=== PATIENT | male | born 1965 | race Caucasian/White ===

== ENCOUNTER 2017-10-30 13:38 | Emergency (ER) | payer MEDICARE, OTHER ==
[~2017-10-30 13:38] MED LIST: AMOX875T PO; CALC1CAP PO; NEPHRO PO; SODI650T PO; [UNRECOGNIZED DRUG - CODE] PO
[2017-10-30 13:39] VITALS: BP 141/73; PULSE 85; RESP 18; TEMP 98; O2SAT 98
--- NOTE | 2017-10-30 14:24 | RADRPT ---
EXAM DATE/TIME: 10/30/2017 14:02 [place] COMPARISON: No previous studies available for comparison. INDICATIONS : Patient hit foot on wall. Pain on top radiating to the medial side and plantar side of foot. MEDICAL HISTORY : Bradycardia. SURGICAL HISTORY : Cholecystectomy. Hernia repair, J Luis left femur, Vas Cath ENCOUNTER: Initial ACUITY: 1 day PAIN SCORE: 8/10 LOCATION: Right Foot FINDINGS: Soft tissue swelling within the underlying small bony exostosis is seen along the dorsum of the midfo ot overlying the first cuneiform tarsal bone. There is no subacute fracture. Bony structures are otherwise intact. CONCLUSION: Focal small bony exostosis with soft tissue swelling along the dorsum of the midfoot likely originati ng from the first cuneiform. No evidence of acute fracture. Georges Montana MD on October 30, 2017 at 14:19 Board Certified Radiologist. This report was verified electronically.
--- NOTE | 2017-10-30 14:57 | PD ---
HPI Chief Complaint: Injury Time Seen by Provider: 14:38 Travel History International Travel<30 days: No Contact w/Intl Traveler<30days: No Traveled to known affect area: No History of Present Illness HPI Patient comes in complaining of pain of the dorsal aspect of his right foot that began the middle the night when he accidentally kicked the wall in his sleep. Patient reports he has a history of restless leg syndrome and is on medication for this but does not take it all the time. Patient's pain is improved since initial onset however he was concerned about possible fracture. Patient describes a throbbing pain on the dorsal aspect of his right foot and radiates inferiorly. Pain is worse with walking. Resting improves the pain. Denies any numbness or tingling. PFSH Past Medical History Arthritis: No Asthma: No Autoimmune Disease: No Anxiety: No Depression: No Heart Rhythm Problems: Yes (BRADYCARDIA) Cancer: No Cardiac Catheterization: No Cardiovascular Problems: No High Cholesterol: No Chemotherapy: No Chest Pain: Yes (CHEST PAIN R/O [place]: STRESSTEST 10/19/13) Congestive Heart Failure: No COPD: No Diabetes: No Diminished Hearing: No Endocrine: No GERD: No Genitourinary: No Hepatitis: No Hiatal Hernia: No Immune Disorder: No Inguinal Hernia: Yes Implanted Vascular Access Dvce: Yes Kidney Stones: No Musculoskeletal: No Neurologic: No Psychiatric: No Reproductive: No Respiratory: No Immunizations Current: Yes Pneumonia: Yes (CHILDHOOD) Radiation Therapy: No Renal Failure: Yes (STAGE 4 KIDNEY FAILURE: 2010) Sickle Cell Disease: No Sleep Apnea: No Thyroid Disease: No Ulcer: No Tetanus Vaccination: < 5 Years Past Surgical History Abdominal Surgery: Yes (BILAT ING. HERNIA,) AICD: No Appendectomy: Yes Body Medical Devices: HEAVEN LEFT FEMUR, Cardiac Surgery: No Cholecystectomy: Yes (08/11/15) Coronary Artery Bypass Graft: No Ear Surgery: No Endocrine Surgery: No Eye Surgery: No Genitourinary Surgery: Yes (Remove galibladder) Joint Replacement: No Neurologic Surgery: No Oral Surgery: No Pacemaker: No Thoracic Surgery: No Other Surgery: Yes (BILATERAL INGUINAL HERNIA X 2 1998) Social History Alcohol Use: No Tobacco Use: Yes (FEW CIG DAILY) Substance Use: Yes (Marijuana) Allergies-Medications (Allergen,Severity, Reaction): Coded Allergies: sulfamethoxazole (Unverified Allergy, Unknown, 10/30/17) trimethoprim (Unverified Allergy, Unknown, 10/30/17) Reported Meds & Prescriptions Reported Meds & Active Scripts Active Reported Calcium Acetate (Phosphate Binder) 667 Mg Cap 667 Mg PO TID Amoxicillin 875 Mg Tab 875 Mg PO Q12HR D3 (Cholecalciferol) 1,000 Unit Cap 2 Cap PO DAILY Sodium Bicarbonate 650 Mg Tab 1,300 Mg PO TID Nephro-Corin Rx (Vitamin B Cmplx/Vit C/Folic AC) 1 Tab 1 Tab PO DAILY Review of Systems Except as stated in HPI: all other systems reviewed are Neg Physical Exam Narrative GENERAL: Well-developed, well nourished, in no acute distress, and non-ill appearing. SKIN: Focused skin assessment warm and dry. HEAD: Atraumatic. Normocephalic. EYES: Pupils equal and round. EOMI. No scleral icterus. No injection or drainage. ENT: No nasal bleeding or discharge. Mucous membranes pink and moist. NECK: Trachea midline. Supple. No nuclear rigidity. CARDIOVASCULAR: Dorsal pulses intact and equal bilaterally. Capillary refill less than 2 seconds. RESPIRATORY: No accessory muscle use. No respiratory distress. MUSCULOSKELETAL: No obvious deformities. No clubbing. No cyanosis. No edema. Full range of motion. Ankle: Neagative anterior draw and Ravi test. Negative Aleida's sign. No laxity noted with passive inversion and eversion of BL ankles. Negative squeeze test. Pulses equal BL distal to injury. Capillary refill less than 2 seconds distal to injury and equal BL. Sensation equal BL 1st web space. FROM of toes distal to injury and equal BL. NV intact distal to injury and equal BL. Dorsal pulses equal BL. Patient reports tenderness to palpation or contusion noted on the dorsal aspect of right foot. There is no crepitus. NEUROLOGICAL: Awake and alert. No obvious cranial nerve deficits. Motor grossly within normal limits. Normal speech. PSYCHIATRIC: Appropriate mood and affect; insight and judgment normal. Data Data Last Documented VS Vital Signs Date Time Temp Pulse Resp B/P (MAP) Pulse Ox O2 Delivery O2 Flow Rate FiO2 10/30/17 15:04 10/30/17 13:39 98.0 85 18 98 Room Air Orders Orders Foot, Complete ([id number]) (10/30/17 ) Ed Discharge Order (10/30/17 14:57) [facility] Medical Decision Making Medical Screen Exam Complete: Yes Emergency Medical Condition: Yes Interpretation(s) Last Impressions Foot X-Ray 10/30/17 0000 Signed Impressions: Service Date/Time: Monday, October 30, 2017 14:02 - CONCLUSION: Focal small bony exostosis with soft tissue swelling along the dorsum of the midfoot likely originating from the first cuneiform. No evidence of acute fracture. Georges Montana MD Differential Diagnosis Fracture, strain, contusion Narrative Course The patient appears to have suffered a contusion of the extremity. There is no clinical evidence to suspect bony injury by exam. Radiographic examination revealed no fracture seen at this time. The patient has full range of motion on active and passive motions. There is no significant edema. There is no proximal or distal joint effusion. The distal extremity appears neurovascularly intact, without evidence of neurovascular injury nor compartment syndrome. Tendon exam also was intact. The patient was discharged and given warnings for vascular compromise. The patient is to follow up with their regular physician or furnace mechanic helper. The patient agrees with plan. Patient in no obvious distress upon re-evaluation. All pertinent Radiology result(s) discussed with patient. Any questions/concerns in reference to patient diagnosis/condition discussed and clarified prior to patient's discharge. Reinforced sheer importance of close follow up with patient's primary physician or primary care clinic. Instructed patient to return to ED immediately, if symptoms return/worsen. Patient showed understanding of above instructions. Further instructions and recommendations were detailed in discharge paperwork. Patient ambulated without difficulty out of ED at discharge. Diagnosis Primary Impression: Contusion of right foot, initial encounter Patient Instructions: Contusion in Adults (ED), General Instructions Additional Instructions: Follow-up with your primary care physician and/or furnace mechanic helper in 3-5 days for reevaluation. Apply ice to affected area 20 minutes per hour as needed for pain. Return to the emergency department if symptoms get worse. Disposition: 01 DISCHARGE HOME Condition: Stable Toni Perry Oct 30, 2017 14:57
== END 2017-10-30 15:05 | disposition home or self-care (01) ==
LOC: NEPK 13:38
DX: S90.31XA Contusion of right foot, initial encounter (principal); F17.210 Nicotine dependence, cigarettes, uncomplicated; G25.81 Restless legs syndrome; W22.8XXA Striking against or struck by other objects, initial encounter; Y93.84 Activity, sleeping
CPT/HCPCS: 73630; 99283

== ENCOUNTER 2017-11-04 14:24 | Emergency (ER) | payer MEDICARE, OTHER ==
[~2017-11-04] VITALS: Ht 180.3 cm; Wt 60.0 kg
[2017-11-04 14:26] VITALS: BP 116/67; PULSE 72; RESP 16; TEMP 98.8; O2SAT 98
[2017-11-04] MEDS ORDERED: IBUP1TAB7 PO (14:48)
[2017-11-04] MEDS ORDERED: PENI500T PO (14:48)
[2017-11-04] MEDS ORDERED: VIST25CA PO (14:48)
--- NOTE | 2017-11-04 14:52 | PD ---
HPI Chief Complaint: Oral / Dental Pain or Problem Time Seen by Provider: 14:40 Travel History International Travel<30 days: No Contact w/Intl Traveler<30days: No Traveled to known affect area: No History of Present Illness HPI 52-year-old male presents the emergency department with several day history of worsening right upper jaw pain and swelling. Patient has one tooth, which is painful with swelling locally. He states he maybe have some drainage in this area as well. He denies fever, chills, or difficulty swallowing. He states the pain radiates to the right ear. He is currently 8 out of 10. Patient also is complaining of chronic restless legs, and is requesting something for that as well as possible. He is allergic to sulfa. PFSH Past Medical History Arthritis: No Asthma: No Autoimmune Disease: No Anxiety: No Depression: No Heart Rhythm Problems: Yes (BRADYCARDIA) Cancer: No Cardiac Catheterization: No Cardiovascular Problems: No High Cholesterol: No Chemotherapy: No Chest Pain: Yes (CHEST PAIN R/O [place]: STRESSTEST 10/19/13) Congestive Heart Failure: No COPD: No Diabetes: No Diminished Hearing: No Endocrine: No GERD: No Genitourinary: No Hepatitis: No Hiatal Hernia: No Immune Disorder: No Inguinal Hernia: Yes Implanted Vascular Access Dvce: Yes Kidney Stones: No Musculoskeletal: No Neurologic: No Psychiatric: No Reproductive: No Respiratory: No Immunizations Current: Yes Pneumonia: Yes (CHILDHOOD) Radiation Therapy: No Renal Failure: Yes (STAGE 4 KIDNEY FAILURE: 2010) Sickle Cell Disease: No Sleep Apnea: No Thyroid Disease: No Ulcer: No Past Surgical History Abdominal Surgery: Yes (BILAT ING. HERNIA,) AICD: No Appendectomy: Yes Body Medical Devices: HEAVEN LEFT FEMUR, Cardiac Surgery: No Cholecystectomy: Yes (08/11/15) Coronary Artery Bypass Graft: No Ear Surgery: No Endocrine Surgery: No Eye Surgery: No Genitourinary Surgery: Yes (Remove galibladder) Joint Replacement: No Neurologic Surgery: No Oral Surgery: No Pacemaker: No Thoracic Surgery: No Other Surgery: Yes (BILATERAL INGUINAL HERNIA X 2 1998) Social History Alcohol Use: No Tobacco Use: Yes (FEW CIG DAILY) Substance Use: Yes (Marijuana) Allergies-Medications (Allergen,Severity, Reaction): Coded Allergies: sulfamethoxazole (Unverified Allergy, Unknown, 11/04/17) trimethoprim (Unverified Allergy, Unknown, 11/04/17) Reported Meds & Prescriptions Reported Meds & Active Scripts Active Reported Calcium Acetate (Phosphate Binder) 667 Mg Cap 667 Mg PO TID Amoxicillin 875 Mg Tab 875 Mg PO Q12HR D3 (Cholecalciferol) 1,000 Unit Cap 2 Cap PO DAILY Sodium Bicarbonate 650 Mg Tab 1,300 Mg PO TID Nephro-Corin Rx (Vitamin B Cmplx/Vit C/Folic AC) 1 Tab 1 Tab PO DAILY Review of Systems Except as stated in HPI: all other systems reviewed are Neg General / Constitutional: No: Fever Eyes: No: Visual changes HENT: Positive: Dental Difficulties, Earache, No: Headaches, Vertigo, Lightheadedness, Sore Throat, Rhinitis, Rhinorrhea, Congestion, Nosebleed, Neck Stiffness, Neck Pain, Masses, Gingival Bleeding, Ear Discharge Cardiovascular: No: Chest Pain or Discomfort Respiratory: No: Shortness of Breath Gastrointestinal: No: Abdominal Pain Genitourinary: No: Dysuria Musculoskeletal: No: Pain Skin: No Rash Neurologic: No: Weakness Psychiatric: No: Depression Endocrine: No: Polydipsia Hematologic/Lymphatic: No: Easy Bruising Physical Exam Narrative GENERAL: Patient appears in [id number] distress. SKIN: Warm and dry. Normal color. Normal turgor. No rash HEAD: Atraumatic. Normocephalic. Patient has tenderness with palpation along the right upper jaw line without obvious swelling noted. EYES: Pupils equal and round. No scleral icterus. No injection or drainage. ENT: No nasal bleeding or discharge. Mucous membranes pink and moist. Teeth are in poor repair with most teeth being missing. Patient has tenderness with movement of the right upper canine. No obvious abscess is noted. Pharynx is clear. Airway is patent. TMs are clear bilaterally. NECK: Trachea midline. Supple and nontender. CARDIOVASCULAR: Regular rate and rhythm. RESPIRATORY: No accessory muscle use. Clear to auscultation. Breath sounds equal bilaterally. MUSCULOSKELETAL: Extremities without clubbing, cyanosis, or edema. No obvious deformities. NEUROLOGICAL: Awake and alert. No obvious cranial nerve deficits. Motor grossly within normal limits. Five out of 5 muscle strength in the arms and legs. Normal speech. PSYCHIATRIC: Appropriate mood and affect; insight and judgment normal. Data Data Last Documented VS Vital Signs Date Time Temp Pulse Resp B/P (MAP) Pulse Ox O2 Delivery O2 Flow Rate FiO2 11/04/17 14:26 98.8 72 16 116/67 (83 98 MDM Medical Decision Making Medical Screen Exam Complete: Yes Emergency Medical Condition: Yes Differential Diagnosis Dental caries. Dental abscess. Restless leg. Narrative Course Patient is treated with Pen-Vee K 5 mg 4 times a day #40. Patient given ibuprofen 800 mg 3 times daily with food #60. Patient is given Vistaril 25 mg up to 3 times a day when necessary restless legs and anxiety. #30. Patient states he dental care as soon as possible. Patient follow up if worsening symptoms develop. Diagnosis Primary Impression: Pain, dental Additional Impression: Restless legs Referrals: [facility] Dentist Patient Instructions: Dental Caries (DC), General Instructions Additional Instructions: Patient is treated with Pen-Vee K 5 mg 4 times a day #40. Patient given ibuprofen 800 mg 3 times daily with food #60. Patient is given Vistaril 25 mg up to 3 times a day when necessary restless legs and anxiety. #30. Patient states he dental care as soon as possible. Patient follow up if worsening symptoms develop. Med/Other Pt SpecificInfo: Prescription(s) given Scripts Hydroxyzine Pamoate (Vistaril) 25 Mg Cap 25 MG PO TID Y for MILD ANXIETY OR AGITATION, #30 CAP 0 Refills Prov: Augusto Billingsley MD 11/04/17 Ibuprofen (Ibuprofen) 800 Mg Tab 800 MG PO Q8H Y for Pain/Inflammation, #60 TAB 0 Refills Prov: Augusto Billingsley MD 11/04/17 Penicillin V Potassium (Penicillin V Potassium) 500 Mg Tab 500 MG PO Q6H for Infection for 10 Days, #40 TAB 0 Refills Prov: Augusto Billingsley MD 11/04/17 Disposition: 01 DISCHARGE HOME Condition: Stable Micheal Serrano Nov 04, 2017 14:52
== END 2017-11-04 15:04 | disposition home or self-care (01) ==
LOC: NEPK 14:24
DX: K08.89 Other specified disorders of teeth and supporting structures (principal); G25.81 Restless legs syndrome; R68.84 Jaw pain; R00.1 Bradycardia, unspecified; R07.9 Chest pain, unspecified; F17.210 Nicotine dependence, cigarettes, uncomplicated; F12.90 Cannabis use, unspecified, uncomplicated; Z88.3 Allergy status to other anti-infective agents; Z88.2 Allergy status to sulfonamides
CPT/HCPCS: 99284

== ENCOUNTER 2018-04-07 16:06 | Emergency (ER) | payer MEDICARE, OTHER ==
[~2018-04-07] VITALS: Ht 180.3 cm; Wt 60.0 kg
[~2018-04-07 16:06] MED LIST changes: +IBUP1TAB7 PO; +PENI500T PO; +VIST25CA PO
[2018-04-07 16:55] VITALS: BP 137/97; PULSE 95; RESP 20; TEMP 97.7; O2SAT 97
[2018-04-08] MEDS ORDERED: PREG25 PO ×2 (09:51)
== END 2018-04-07 18:20 | disposition left against medical advice (07) ==
LOC: NED 16:06
DX: Z03.89 Encounter for observation for other suspected diseases and conditions ruled out (principal)
CPT/HCPCS: 99281

== ENCOUNTER 2018-04-08 09:35 | Inpatient (IN) | payer MEDICARE, OTHER ==
[2018-04-08] VITALS (10 sets, daily range): BP systolic 120–154; BP diastolic 67–87; PULSE 63–99; RESP 15–20; TEMP 97.2–98.1; O2SAT 97–100
[~2018-04-08] VITALS: Ht 180.3 cm; Wt 54.3 kg
[2018-04-08] MEDS ORDERED: PREG25 PO ×2 (09:51)
[2018-04-08] MEDS ORDERED: SODIUM CHLORIDE 0.9% FLUSH 10 ML FLUSH IV FLUSH PRN ×3 (10:00→11:30)
[2018-04-08 10:22] LABS: AUTOMATED NEUTROPHIL # 5.4 TH/MM3 (1.8-7.7); BASOPHIL # 0.1 TH/MM3 (0-0.2); BASOPHIL % 0.9 % (0.0-2.0); EOSINOPHIL # 0.3 TH/MM3 (0-0.4); EOSINOPHIL % 3.3 % (0.0-4.0); HEMATOCRIT 34.1 % (39.0-51.0); HEMOGLOBIN 11.3 GM/DL (13.0-17.0); LYMPH % 19.8 % (9.0-44.0); LYMPHOCYTE # 1.5 TH/MM3 (1.0-4.8); MEAN CELL VOLUME 96.6 FL (80.0-100.0); MEAN CORPUSCULAR HEMOGLOBIN 32.1 PG (27.0-34.0); MEAN CORPUSCULAR HGB CONC 33.2 % (32.0-36.0); MEAN PLATELET VOLUME 7.9 FL (7.0-11.0); MONO % 6.1 % (0.0-8.0); MONOCYTE # 0.5 TH/MM3 (0-0.9); NEUT % 69.9 % (16.0-70.0); PLATELET COUNT 234 TH/MM3 (150-450); RED BLOOD COUNT 3.53 MIL/MM3 (4.50-5.90); RED CELL DISTRIBUTION WIDTH 15.1 % (11.6-17.2); WHITE BLOOD COUNT 7.7 TH/MM3 (4.0-11.0)
[2018-04-08 10:31] LABS: BICARBONATE 12.3 MEQ/L (21.0-32.0); CALCIUM 9.2 MG/DL (8.5-10.1); CREATININE 9.63 MG/DL (0.60-1.30)
--- NOTE | 2018-04-08 10:37 | PD ---
HPI Chief Complaint: Medical Clearance Time Seen by Provider: 10:18 Travel History International Travel<30 days: No Contact w/Intl Traveler<30days: No Traveled to known affect area: No History of Present Illness HPI Patient is a 52-year-old male with history of end-stage renal disease on hemodialysis, presents the emergency room for dialysis. Patient reports that he has dialysis on Tuesdays, and Saturdays, reports that he initially saw Dr. Elise with nephrology here for his dialysis but moved to the [facility] and had his dialysis there. Reports that he didn't like where he was living and decided to move back to [place]. He last received his dialysis treatment on Saturday of last week. Reports that he has not scheduled an appointment with a range rider in this area as "I just got here." Patient here only for dialysis. Patient is not anuric and does make urine. PFSH Past Medical History Arthritis: No Asthma: No Autoimmune Disease: No Anxiety: No Depression: No Heart Rhythm Problems: Yes (BRADYCARDIA) Cancer: No Cardiac Catheterization: No Cardiovascular Problems: No High Cholesterol: No Chemotherapy: No Chest Pain: Yes Congestive Heart Failure: No COPD: No Diabetes: No Dialysis: Yes (TRS) Diminished Hearing: No Endocrine: No GERD: No Genitourinary: No Hepatitis: No Hiatal Hernia: No Immune Disorder: No Inguinal Hernia: Yes Implanted Vascular Access Dvce: Yes Kidney Stones: No Musculoskeletal: No Neurologic: No Psychiatric: No Reproductive: No Respiratory: No Immunizations Current: Yes Pneumonia: Yes Radiation Therapy: No Renal Failure: Yes Sickle Cell Disease: No Sleep Apnea: No Thyroid Disease: No Ulcer: No Tetanus Vaccination: < 5 Years Influenza Vaccination: No Past Surgical History Abdominal Surgery: Yes (BILAT ING. HERNIA,) AICD: No Appendectomy: Yes Body Medical Devices: HEAVEN LEFT FEMUR, Cardiac Surgery: No Cholecystectomy: Yes (08/11/15) Coronary Artery Bypass Graft: No Ear Surgery: No Endocrine Surgery: No Eye Surgery: No Genitourinary Surgery: Yes (Remove galibladder) Joint Replacement: No Neurologic Surgery: No Oral Surgery: No Pacemaker: No Thoracic Surgery: No Other Surgery: Yes (BILATERAL INGUINAL HERNIA X 2 1998) Social History Alcohol Use: No Tobacco Use: Yes (FEW CIG DAILY) Substance Use: Yes (Marijuana) Allergies-Medications (Allergen,Severity, Reaction): Coded Allergies: sulfamethoxazole (Unverified Allergy, Unknown, 04/08/18) trimethoprim (Unverified Allergy, Unknown, 04/08/18) Reported Meds & Prescriptions Reported Meds & Active Scripts Active Reported Lyrica (Pregabalin) 25 Mg Cap 25 Mg PO BID Calcium Acetate (Phosphate Binder) 667 Mg Cap 667 Mg PO TID Review of Systems General / Constitutional: No: Fever Eyes: No: Visual changes HENT: No: Headaches Cardiovascular: No: Chest Pain or Discomfort Respiratory: No: Shortness of Breath Gastrointestinal: No: Abdominal Pain Genitourinary: No: Dysuria Musculoskeletal: No: Pain Skin: No Rash Neurologic: No: Weakness Psychiatric: No: Depression Endocrine: No: Polydipsia Hematologic/Lymphatic: No: Easy Bruising Physical Exam Narrative GENERAL: NAD SKIN: Focused skin assessment warm/dry. HEAD: Atraumatic. Normocephalic. EYES: Pupils equal and round. No scleral icterus. No injection or drainage. ENT: No nasal bleeding or discharge. Mucous membranes pink and moist. NECK: Trachea midline. No JVD. CARDIOVASCULAR: Regular rate and rhythm. No murmur appreciated. RESPIRATORY: No accessory muscle use. Clear to auscultation. Breath sounds equal bilaterally. GASTROINTESTINAL: Abdomen soft, non-tender, nondistended. Hepatic and splenic margins not palpable. MUSCULOSKELETAL: No obvious deformities. No clubbing. No cyanosis. No edema. Patient with left sided AV fistula with good thrill NEUROLOGICAL: Awake and alert. No obvious cranial nerve deficits. Motor grossly within normal limits. Normal speech. PSYCHIATRIC: Appropriate mood and affect; insight and judgment normal. Data Data Last Documented VS Vital Signs Date Time Temp Pulse Resp B/P (MAP) Pulse Ox O2 Delivery O2 Flow Rate FiO2 04/08/18 11:22 97 Room Air 04/08/18 09:54 86 15 04/08/18 09:37 97.2 Orders Orders Basic Metabolic Panel (Bmp) (04/08/18 09:50) Complete Blood Count With Diff (04/08/18 09:50) Iv Access Insert/Monitor (04/08/18 09:50) Sodium Chloride 0.9% Flush (Ns Flush) (04/08/18 10:00) Electrocardiogram (04/08/18 10:37) Potassium, Serum (K) (04/08/18 13:37) Ecg Monitoring (04/08/18 10:37) Oximetry (04/08/18 10:37) Calcium Gluconate Inj (Calcium Gluconate (04/08/18 10:45) Insulin Human Regular Inj (Novolin R Inj (04/08/18 10:45) Dextrose 50% In Michael (Vial) Inj (D50w (Vi (04/08/18 10:45) Sodium Bicarbonate 8.4% Inj (Sodium Bica (04/08/18 10:45) Sodium Polysty Sulfate Liq (Kayexalate L (04/08/18 10:45) Consult Nephrology (04/08/18 ) (Hub Use Only)Inp Phy Cons/Ref (04/08/18 ) Blood Flow Rate (04/08/18 11:03) Dialysate Flow Rate (04/08/18 11:03) Dialyzer (04/08/18 11:03) Concentrate (04/08/18 11:03) Acid Concentrate (04/08/18 11:03) Length Of Dialysis (04/08/18 11:03) Frequency Of Dialysis (04/08/18 11:03) Dialysis Obtain (04/08/18 11:03) Hepatitis Profile (04/08/18 11:03) Needle Size (04/08/18 11:03) Dialysis Schedule (04/08/18 11:03) Resp Oxygen Nagi C Titrat 1-4 L (04/08/18 ) Dialysis Weight (04/08/18 11:03) ^ Obtain As Needed (04/08/18 11:03) Sodium Chlor 0.9% 1000 Ml Inj (Ns 1000 M (04/08/18 11:03) Heparin Inj (Heparin Inj) (04/08/18 11:15) Sodium Chlor 0.9% 1000 Ml Inj (Ns 1000 M (04/08/18 11:03) Sodium Chlor 0.9% 1000 Ml Inj (Ns 1000 M (04/08/18 11:03) Mannitol Inj (Mannitol Inj) (04/08/18 11:15) Albumin 25% Inj (Albumin 25% Inj) (04/08/18 11:15) Sodium Chloride 0.9% Flush (Ns Flush) (04/08/18 11:15) Heparin Inj (Heparin Inj) (04/08/18 11:15) Gentamicin Inj (Gentamicin Inj) (04/08/18 11:15) Ondansetron Inj (Zofran Inj) (04/08/18 11:15) Acetaminophen (Tylenol) (04/08/18 11:15) Diphenhydramine (Benadryl) (04/08/18 11:15) Nitroglycerin Sl (Nitrostat Sl) (04/08/18 11:15) Clonidine (Catapres) (04/08/18 11:15) Epoetin Zack Inj (Epogen Inj) (04/08/18 11:15) Gelatin 12 Mm/7 Mm Top (Gelfoam 12 Mm/7 (04/08/18 11:15) Admit Order (Ed Use Only) (04/08/18 11:22) Labs Laboratory Tests Test 04/08/18 09:35 White Blood Count 7.7 TH/MM3 Red Blood Count 3.53 MIL/MM3 Hemoglobin 11.3 GM/DL Hematocrit 34.1 % Mean Corpuscular Volume 96.6 FL Mean Corpuscular Hemoglobin 32.1 PG Mean Corpuscular Hemoglobin Concent 33.2 % Red Cell Distribution Width 15.1 % Platelet Count 234 TH/MM3 Mean Platelet Volume 7.9 FL Neutrophils (%) (Auto) 69.9 % Lymphocytes (%) (Auto) 19.8 % Monocytes (%) (Auto) 6.1 % Eosinophils (%) (Auto) 3.3 % Basophils (%) (Auto) 0.9 % Neutrophils # (Auto) 5.4 TH/MM3 Lymphocytes # (Auto) 1.5 TH/MM3 Monocytes # (Auto) 0.5 TH/MM3 Eosinophils # (Auto) 0.3 TH/MM3 Basophils # (Auto) 0.1 TH/MM3 CBC Comment DIFF FINAL Differential Comment Blood Urea Nitrogen 105 MG/DL Creatinine 9.63 MG/DL Random Glucose 152 MG/DL Calcium Level 9.2 MG/DL Sodium Level 141 MEQ/L Potassium Level 6.1 MEQ/L Chloride Level 114 MEQ/L Carbon Dioxide Level 12.3 MEQ/L Anion Gap 15 MEQ/L Estimat Glomerular Filtration Rate 6 ML/MIN MDM Medical Decision Making Medical Screen Exam Complete: Yes Emergency Medical Condition: Yes Medical Record Reviewed: Yes Interpretation(s) EKG at 11:00, NSR at 69bpm, qt/qtc: 360/379, patient with hyperacute t waves Vital Signs Date Time Temp Pulse Resp B/P (MAP) Pulse Ox O2 Delivery O2 Flow Rate FiO2 04/08/18 09:54 86 15 144/79 (100) 97 Room Air 04/08/18 09:37 97.2 90 16 142/78 (99) 99 Differential Diagnosis CKD, ESRD on HD, electrolyte abnormality Narrative Course During the course of the patients emergency department visit, the patients history, examination, and differential diagnosis were reviewed with the patient. The patient was placed on a playground monitor with oximetry and frequent blood pressure monitoring. The patient had an IV access obtained and blood work sent for analysis. The patients laboratory studies were reviewed and remarkable for CBC & BMP Diagram 04/08/18 09:35 Calcium Level 9.2 Call made to range rider (Dr. Elise) for dialysis Call made to [facility] for admission Patient will be treated with calcium gluconate, insulin with dextrose, sodium bicarbonate, Kayexalate. Call made to Dr. Elise - "not his patient anymore" - request call to lactation nurse range rider Call made to Dr. Thomas who will see patient in consult. Understands that he will most likely need dialysis today Case reviewed with Dr. Diehl who accepts pt to service Critical Care Narrative Aggregate critical care time was 30 minutes. Time to perform other separately billable procedures was not included in the critical care time. My time did not include minutes spent treating any other patients simultaneously or on activities that did not directly contribute to the patient's treatment. The services I provided to this patient were to treat and/or prevent clinically significant deterioration that could result in: , decompensation, deterioration I provided critical care services requiring my management, as noted below: Chart data review, documentation time, medication orders and management, vital sign assessments/reviewing monitor data, ordering and reviewing lab tests, ordering and interpreting/reviewing x-rays and diagnostic studies, care of the patient and discussion of the patient with the admitting physicians. Diagnosis Primary Impression: Hyperkalemia Additional Impression: ESRD (end stage renal disease) Admitting Information Admitting Physician Requests: Admit Jessica Robins DO Apr 08, 2018 10:37
[2018-04-08] MEDS ORDERED: CALCIUM GLUCONATE 10% 1 GM/10 ML VIAL SLOW IVP ONE (10:45)
[2018-04-08] MEDS ORDERED: SODIUM POLYSTYRENE SULFONATE SUSP 15 GM/60 ML CUP PO ONE (10:45)
[2018-04-08] MEDS ORDERED: DEXTROSE 50% IN WATER 50 ML VIAL(D50) IV PUSH ONE (10:45)
[2018-04-08] MEDS ORDERED: INSULIN HUMAN REGULAR 1,000 UNITS/10 ML VIAL IV PUSH ONE (10:45)
[2018-04-08] MEDS ORDERED: SODIUM BICARBONATE 8.4% SOLN 50 MEQ/50 ML VIAL SLOW IVP ONE (10:45)
[2018-04-08] MEDS ORDERED: SODIUM CHLOR 0.9% 1000 ML INJ 1,000 ML OTHER PRN ×2 (11:03)
[2018-04-08] MEDS ORDERED: SODIUM CHLOR 0.9% 1000 ML INJ 1,000 ML IV PRN (11:03)
--- NOTE | 2018-04-08 11:10 | PD.CONS ---
[facility] Service Nephrology Consult Requested By Dr. Robins Reason for Consult ESRD management Primary Care Physician No Primary Care Physician History of Present Illness Patient is a 52-year-old white male with history of end-stage renal disease, has congenital obstructive uropathy, over the course his kidney failed he ended up on dialysis at first he used to see Dr. Ed Elise, but he moved to [facility] in [place] and is now with [facility], patient came back to the town as he did not like to stay there and did not made any arrangements for dialysis, he came in to the emergency expecting his dialysis to be arranged the last dialysis was done about 1 week ago, Dr. Robins has called Dr. Ed Elise office and they refused to accept the patient back, he is in the emergency now feels tired and fatigued. His potassium was 6.1 BUN of 105 creatinine of 9.63. His potassium was treated in the emergency with calcium, D50, insulin, sodium bicarbonate, Kayexalate. Review of Systems Constitutional: COMPLAINS OF: Fatigue Musculoskeletal: COMPLAINS OF: Joint pain, Muscle aches Psychiatric: COMPLAINS OF: Anxiety Past Family Social History Allergies: Coded Allergies: sulfamethoxazole (Unverified Allergy, Unknown, 04/08/18) trimethoprim (Unverified Allergy, Unknown, 04/08/18) Past Medical History CKD stage 5. Congenital urological abnormality with suspected obstructive uropathy Hyperkalemia Metabolic Acidosis Hyperphosphatemia 2ndary hyperparathyroidism Tobacco abuse Past Surgical History Left upper extremity AV fistula Urological surgery as a child Pyloric stenosis repair Hernia repair Reported Medications Reported Meds & Active Scripts Active Reported Lyrica (Pregabalin) 25 Mg Cap 25 Mg PO BID Calcium Acetate (Phosphate Binder) 667 Mg Cap 667 Mg PO TID Active Ordered Medications Current Medications Medications (Trade) Dose Ordered Sig/Smith Route Start Time Stop Time Status Last Admin (NS Flush) 2 ml UNSCH PRN IV FLUSH 04/08/18 10:00 Sodium Chloride 1,000 ml @ 0 mls/hr Q0M PRN OTHER 04/08/18 11:03 UNV (Heparin Inj) 8,000 units UNSCH PRN IV FLUSH 04/08/18 11:15 UNV Sodium Chloride 1,000 ml @ 200 mls/hr Q5H PRN IV 04/08/18 11:03 UNV Sodium Chloride 1,000 ml @ 0 mls/hr Q0M PRN OTHER 04/08/18 11:03 UNV (Mannitol Inj) 12.5 gm UNSCH PRN IV 04/08/18 11:15 UNV Albumin Human 100 ml @ 60 mls/hr UNSCH PRN IV 04/08/18 11:15 UNV (NS Flush) 5 ml UNSCH PRN IV FLUSH 04/08/18 11:15 UNV (Heparin Inj) UNSCH PRN .XX 04/08/18 11:15 UNV (Gentamicin Inj) 20 mg UNSCH PRN OTHER 04/08/18 11:15 UNV (Zofran Inj) 4 mg UNSCH PRN IV PUSH 04/08/18 11:15 UNV (Tylenol) 650 mg UNSCH PRN PO 04/08/18 11:15 UNV (Benadryl) 25 mg UNSCH PRN PO 04/08/18 11:15 UNV (Nitrostat Sl) 0.4 mg UNSCH PRN SL 04/08/18 11:15 UNV (Catapres) 0.1 mg UNSCH PRN PO 04/08/18 11:15 UNV (Epogen Inj) 2,000 units UNSCH PRN IV PUSH 04/08/18 11:15 UNV (Gelfoam 12 Mm/7 Mm Top) 1 foam UNSCH PRN TOP 04/08/18 11:15 UNV Family History Noncontributory Social History History of tobacco use Alcohol use rarely History of marijuana use positive Physical Exam Vital Signs Vital Signs Date Time Temp Pulse Resp B/P (MAP) Pulse Ox O2 Delivery O2 Flow Rate FiO2 04/08/18 09:54 86 15 144/79 (100) 97 Room Air 04/08/18 09:37 97.2 90 16 142/78 (99) 99 Physical Exam GENERAL: Well-nourished, well-developed patient. SKIN: Warm and dry. HEAD: Normocephalic. EYES: No scleral icterus. No injection or drainage. NECK: Supple, trachea midline. No JVD or lymphadenopathy. CARDIOVASCULAR: Regular rate and rhythm without murmurs, gallops, or rubs. RESPIRATORY: Breath sounds equal bilaterally. No accessory muscle use. GASTROINTESTINAL: Abdomen soft, non-tender, nondistended. EXTREMITIES: No cyanosis, or edema. AV fistula left arm NEUROLOGICAL: Awake, alert, and oriented x 3. Non-focal. Laboratory Laboratory Tests Test 04/08/18 09:35 White Blood Count 7.7 Red Blood Count 3.53 Hemoglobin 11.3 Hematocrit 34.1 Mean Corpuscular Volume 96.6 Mean Corpuscular Hemoglobin 32.1 Mean Corpuscular Hemoglobin Concent 33.2 Red Cell Distribution Width 15.1 Platelet Count 234 Mean Platelet Volume 7.9 Neutrophils (%) (Auto) 69.9 Lymphocytes (%) (Auto) 19.8 Monocytes (%) (Auto) 6.1 Eosinophils (%) (Auto) 3.3 Basophils (%) (Auto) 0.9 Neutrophils # (Auto) 5.4 Lymphocytes # (Auto) 1.5 Monocytes # (Auto) 0.5 Eosinophils # (Auto) 0.3 Basophils # (Auto) 0.1 CBC Comment DIFF FINAL Differential Comment Blood Urea Nitrogen 105 Creatinine 9.63 Random Glucose 152 Calcium Level 9.2 Sodium Level 141 Potassium Level 6.1 Chloride Level 114 Carbon Dioxide Level 12.3 Anion Gap 15 Estimat Glomerular Filtration Rate 6 Result Diagram: 04/08/18 0935 04/08/18 0935 Assessment and Plan Problem List: (1) ESRD (end stage renal disease) ICD Codes: N18.6 - End stage renal disease Status: Acute Plan: Patient has no arrangement for dialysis he is uremic oriented to dialysis orientation and try to arrange outpatient dialysis Continue supportive care Avoid nephrotoxins (2) Hyperkalemia ICD Codes: E87.5 - Hyperkalemia Status: Acute Plan: Treated and will recheck later (3) Metabolic acidosis ICD Codes: E87.2 - Acidosis Status: Acute Plan: Due to renal failure (4) HTN (hypertension) ICD Codes: I10 - HTN (hypertension) Status: Chronic Plan: Continue to monitor Matthias Thomas MD Apr 08, 2018 11:10
[2018-04-08] MEDS ORDERED: ACETAMINOPHEN 325 MG TAB PO PRN ×3 (11:15→11:30)
[2018-04-08] MEDS ORDERED: ONDANSETRON HCL 4 MG/2 ML VIAL IV PUSH PRN (11:15)
[2018-04-08] MEDS ORDERED: cloNIDine HCL 0.1 MG TAB PO PRN (11:15)
[2018-04-08] MEDS ORDERED: diphenhydrAMINE HCL 25 MG CAP PO PRN (11:15)
[2018-04-08] MEDS ORDERED: GENTAMICIN SULFATE 20 MG/2 ML VIAL OTHER PRN (11:15)
[2018-04-08] MEDS ORDERED: ALBUMIN 25% INJ 100 ML IV PRN (11:15)
[2018-04-08] MEDS ORDERED: MANNITOL 12.5 GM/50 ML VIAL IV PRN (11:15)
[2018-04-08] MEDS ORDERED: GELATIN 12 MM/7 MM FOAM TOP PRN (11:15)
[2018-04-08] MEDS ORDERED: NITROGLYCERIN 0.4 MG SL 25 TABS/BTL SL PRN (11:15)
[2018-04-08] MEDS ORDERED: EPOETIN ALFA 10,000 UNITS/ML VIAL IV PUSH PRN (11:15)
[2018-04-08] MEDS ORDERED: HEPARIN SODIUM - IV 10,000 UNITS/10 ML VIAL PRN (11:15)
[2018-04-08] MEDS ORDERED: HEPARIN SODIUM - IV 10,000 UNITS/10 ML VIAL IV FLUSH PRN (11:15)
[2018-04-08] MEDS ORDERED: RESP: ALBUTEROL 2.5 MG/IPRATROPIUM 0.5 MG NEB (PRN) NEB (11:30)
[2018-04-08] MEDS ORDERED: MAGNESIUM HYDROXIDE SUSP 30 ML CUP PO PRN (11:30)
[2018-04-08] MEDS ORDERED: ONDANSETRON ODT 4 MG TAB PO PRN (11:30)
[2018-04-08] MEDS ORDERED: NALOXONE HCL 0.4 MG/ML AMP IV PUSH PRN (11:30)
--- NOTE | 2018-04-08 16:16 | HHI.HP ---
[facility] Service [facility] Primary Care Physician No Primary Care Physician Admission Diagnosis Hyperkalemia, esrd Diagnoses: (1) Medical non-compliance (2) ESRD on hemodialysis (3) Hyperkalemia Chief Complaint: Noncompliance, I came to the hospital because I need to resume dialysis Travel History International Travel<30 Days: No Contact w/Intl Traveler <30 Da: No Traveled to Known Affected Are: No History of Present Illness 52-year-old male for past medical history of end-stage renal disease on hemodialysis presented to the ED today because he states it has been over a week since he moved back in town that he didn't go for HD. He initially call Dr. Ed Elise, who refused to see the patient and instructed him to come to the ED. Patient denies any chest pain or shortness of breath. He only complains of leg cramping which he attributes to his restless leg syndrome. Abnormal lab in the ED include elevated potassium for which patient was treated. Nephrology was consulted Review of Systems Except as stated in HPI: all other systems reviewed are Neg Past Family Social History Past Medical History ESRD on HD Implanted Vascular Access Dvce: Yes Renal Failure: Yes Past Surgical History BILAT ING. HERNIA Appendectomy: Yes HEAVEN LEFT FEMUR, Cholecystectomy: Yes (08/11/15) Left arm AV fistula Other Surgery: Yes (BILATERAL INGUINAL HERNIA X 2 1998) Reported Medications Lyrica (Pregabalin) 25 Mg Cap 25 Mg PO BID Calcium Acetate (Phosphate Binder) 667 Mg Cap 667 Mg PO TID Allergies: Coded Allergies: sulfamethoxazole (Unverified Allergy, Unknown, 04/08/18) trimethoprim (Unverified Allergy, Unknown, 04/08/18) Family History Family history positive for chronic kidney disease, cancer unknown type Social History Alcohol Use: No Tobacco Use: Yes (FEW CIG DAILY) Substance Use: Yes (Marijuana) Physical Exam Vital Signs Vital Signs Date Time Temp Pulse Resp B/P (MAP) Pulse Ox O2 Delivery O2 Flow Rate FiO2 04/08/18 14:39 04/08/18 14:05 70 15 146/67 (93) 100 Room Air 04/08/18 12:00 78 17 154/73 (100) 98 Room Air 04/08/18 11:22 97 Room Air 04/08/18 09:54 86 15 144/79 (100) 97 Room Air 04/08/18 09:37 97.2 90 16 142/78 (99) 99 Physical Exam GENERAL: This is a well-nourished, well-developed patient, in no apparent distress. SKIN: No rashes, ecchymoses or lesions. Cool and dry. HEAD: Atraumatic. Normocephalic. No temporal or scalp tenderness. EYES: Pupils equal round and reactive. Extraocular motions intact. No scleral icterus. No injection or drainage. ENT: Nose without bleeding, purulent drainage or septal hematoma. Throat without erythema, tonsillar hypertrophy or exudate. Uvula midline. Airway patent. NECK: Trachea midline. No JVD or lymphadenopathy. Supple, nontender, no meningeal signs. CARDIOVASCULAR: Regular rate and rhythm without murmurs, gallops, or rubs. RESPIRATORY: Clear to auscultation. Breath sounds equal bilaterally. No wheezes , rales, or rhonchi. GASTROINTESTINAL: Abdomen soft, non-tender, nondistended. No hepato-splenomegaly , or palpable masses. No guarding. MUSCULOSKELETAL: Extremities without clubbing, cyanosis, or edema. No joint tenderness, effusion, or edema noted. No calf tenderness. Negative Homans sign bilaterally. NEUROLOGICAL: Awake and alert. Cranial nerves II through XII intact. Motor and sensory grossly within normal limits. Five out of 5 muscle strength in all muscle groups. Normal speech. Laboratory Laboratory Tests Test 04/08/18 09:35 White Blood Count 7.7 Red Blood Count 3.53 Hemoglobin 11.3 Hematocrit 34.1 Mean Corpuscular Volume 96.6 Mean Corpuscular Hemoglobin 32.1 Mean Corpuscular Hemoglobin Concent 33.2 Red Cell Distribution Width 15.1 Platelet Count 234 Mean Platelet Volume 7.9 Neutrophils (%) (Auto) 69.9 Lymphocytes (%) (Auto) 19.8 Monocytes (%) (Auto) 6.1 Eosinophils (%) (Auto) 3.3 Basophils (%) (Auto) 0.9 Neutrophils # (Auto) 5.4 Lymphocytes # (Auto) 1.5 Monocytes # (Auto) 0.5 Eosinophils # (Auto) 0.3 Basophils # (Auto) 0.1 CBC Comment DIFF FINAL Differential Comment Blood Urea Nitrogen 105 Creatinine 9.63 Random Glucose 152 Calcium Level 9.2 Sodium Level 141 Potassium Level 6.1 Chloride Level 114 Carbon Dioxide Level 12.3 Anion Gap 15 Estimat Glomerular Filtration Rate 6 Result Diagram: 04/08/1893404/08/1835 Septic Shock Reassessment Septic shock perfusion: reassessment completed Caprini VTE Risk Assessment Caprini VTE Risk Assessment: No/Low Risk (score <= 1) Caprini Risk Assessment Model Point Value = 1 Point Value = 2 Point Value = 3 Point Value = 5 Age 41-60 Minor surgery BMI > 25 kg/m2 Swollen legs Varicose veins or History of unexplained or recurrent spontaneous Oral contraceptives or hormone replacement Sepsis (< 1 month) Serious lung disease, including pneumonia (< 1 month) Abnormal pulmonary function Acute myocardial infarction Congestive heart failure (< 1 month) History of inflammatory bowel disease Medical patient at bed rest Age 61-74 Arthroscopic surgery Major open surgery (> 45 min) Laparoscopic surgery (> 45 min) Malignancy Confined to bed (> 72 hours) Immobilizing plaster cast Central venous access Age >= 75 History of VTE Family history of VTE Factor V Leiden Prothrombin [id number] Lupus anticoagulant Anticardiolipin antibodies Elevated serum homocysteine Heparin-induced thrombocytopenia Other congenital or acquired thrombophilia Stroke (< 1 month) Elective arthroplasty Hip, pelvis, or leg fracture Acute spinal cord injury (< 1 month) Prophylaxis Regimen Total Risk Factor Score Risk Level Prophylaxis Regimen 0-1 Low Early ambulation 2 Moderate Order ONE of the following: *Sequential Compression Device (SCD) *Heparin 5000 units SQ BID 3-4 Higher Order ONE of the following medications: *Heparin 5000 units SQ TID *Enoxaparin/Lovenox 40 mg SQ daily (WT < 150 kg, CrCl > 30 mL/min) *Enoxaparin/Lovenox 30 mg SQ daily (WT < 150 kg, CrCl > 10-29 mL/min) *Enoxaparin/Lovenox 30 mg SQ BID (WT < 150 kg, CrCl > 30 mL/min) AND/OR *Sequential Compression Device (SCD) 5 or more Highest Order ONE of the following medications: *Heparin 5000 units SQ TID (Preferred with Epidurals) *Enoxaparin/Lovenox 40 mg SQ daily (WT < 150 kg, CrCl > 30 mL/min) *Enoxaparin/Lovenox 30 mg SQ daily (WT < 150 kg, CrCl > 10-29 mL/min) *Enoxaparin/Lovenox 30 mg SQ BID (WT < 150 kg, CrCl > 30 mL/min) AND *Sequential Compression Device (SCD) Assessment and Plan Problem List: (1) Hyperglycemia ICD Code: R73.9 - Hyperglycemia, unspecified (2) Anemia in chronic kidney disease (CKD) ICD Code: N18.9 - Chronic kidney disease, unspecified; D63.1 - Anemia in chronic kidney disease (3) ESRD on hemodialysis ICD Code: N18.6 - End stage renal disease; Z99.2 - Dependence on renal dialysis (4) Medical non-compliance ICD Code: Z91.19 - Patient's noncompliance with other medical treatment and regimen (5) HTN (hypertension) ICD Code: I10 - HTN (hypertension) Status: Chronic (6) Hyperkalemia ICD Code: E87.5 - Hyperkalemia Status: Acute Assessment and Plan 52-year-old man with End-stage renal disease on hemodialysis Nephrology consulted He will need outpatient set up for hemodialysis prior to discharge Hyperkalemia Treated in the ED, monitor level Metabolic acidosis Secondary to renal failure Anemia of chronic kidney disease H&H stable and continue to monitor Hyperglycemia Check hemoglobin A1c and treat accordingly Hypertension Start Procardia 30 mg daily Tobacco abuse Tobacco counseling cessation provided Start nicotine patch Code Status Full code Discussed Condition With ED physician, patient Physician Certification 2 Midnight Certification Type: Admission for Inpatient Services Order for Inpatient Services The services are ordered in accordance with Medicare regulations or non- Medicare payer requirements, as applicable. In the case of services not specified as inpatient-only, they are appropriately provided as inpatient services in accordance with the 2-midnight benchmark. Estimated LOS (days): 2 days is the estimated time the patient will need to remain in the hospital, assuming treatment plan goals are met and no additional complications. Post-Hospital Plan: Not yet determined Santos Diehl MD Apr 08, 2018 16:16
--- NOTE | 2018-04-08 17:18 | EKG ---
Date Performed: 04/08/2018 Time Performed: 11:00:38 PTAGE: 52 years EKG: Sinus rhythm PEAKED T WAVES ABNORMAL ECG PREVIOUS TRACING : 08/08/2016 14.14 Compared to previous tracing, peaked T waves present DOCTOR: Terry Dhaliwal Interpretating Date/Time 04/08/2018 17:16:20
[2018-04-08] MEDS: PREGABALIN 25 MG CAP PO SCH (20:32)
[2018-04-08] MEDS: NICOTINE 21 MG/24 HR PATCH T-DERMAL SCH (20:32)
[2018-04-08] MEDS: CALCIUM ACETATE 667 MG CAP PO SCH (20:32)
[2018-04-08] MEDS: REMOVE OLD PATCH T-DERMAL SCH (20:34)
[2018-04-08] MEDS ORDERED: SODIUM CHLORIDE 0.9% FLUSH 10 ML FLUSH IV FLUSH SCH (21:00)
[2018-04-09] VITALS (8 sets, daily range): BP systolic 128–154; BP diastolic 67–80; PULSE 70–98; RESP 16–20; TEMP 97.6–98.8; O2SAT 96–99
[2018-04-09 06:27] LABS: AUTOMATED NEUTROPHIL # 5.5 TH/MM3 (1.8-7.7); BASOPHIL % 0.5 % (0.0-2.0); EOSINOPHIL # 0.3 TH/MM3 (0-0.4); EOSINOPHIL % 3.5 % (0.0-4.0); HEMATOCRIT 33.4 % (39.0-51.0); HEMOGLOBIN 11.3 GM/DL (13.0-17.0); LYMPH % 27.3 % (9.0-44.0); LYMPHOCYTE # 2.5 TH/MM3 (1.0-4.8); MEAN CELL VOLUME 93.5 FL (80.0-100.0); MEAN CORPUSCULAR HEMOGLOBIN 31.8 PG (27.0-34.0); MEAN PLATELET VOLUME 8.1 FL (7.0-11.0); MONO % 8.2 % (0.0-8.0); MONOCYTE # 0.7 TH/MM3 (0-0.9); NEUT % 60.5 % (16.0-70.0); PLATELET COUNT 250 TH/MM3 (150-450); RED BLOOD COUNT 3.57 MIL/MM3 (4.50-5.90); RED CELL DISTRIBUTION WIDTH 14.6 % (11.6-17.2); WHITE BLOOD COUNT 9.1 TH/MM3 (4.0-11.0)
[2018-04-09 07:06] LABS: ALBUMIN 3.5 GM/DL (3.4-5.0); ALKALINE PHOSPHATASE 56 U/L (45-117); ALT (GPT) 27 U/L (12-78); AST (GOT) 19 U/L (15-37); BICARBONATE 24.9 MEQ/L (21.0-32.0); BLOOD UREA NITROGEN 61 MG/DL (7-18); CALCIUM 8.1 MG/DL (8.5-10.1); CHLORIDE 102 MEQ/L (98-107); CREATININE 6.72 MG/DL (0.60-1.30); GLOMERULAR FILTRATION RATE 9 ML/MIN (>89); GLUCOSE,RANDOM 80 MG/DL (74-106); PHOSPHORUS 8.3 MG/DL (2.5-4.9); SODIUM (NA) 140 MEQ/L (136-145); TOTAL BILIRUBIN ADULT 0.2 MG/DL (0.2-1.0); TOTAL PROTEIN 6.6 GM/DL (6.4-8.2)
[2018-04-09] MEDS: NICOTINE 21 MG/24 HR PATCH T-DERMAL SCH (07:52)
[2018-04-09] MEDS: VITAMIN B CMPLX/VITC/FOLIC AC CAP PO SCH (07:52)
[2018-04-09] MEDS: CALCIUM ACETATE 667 MG CAP PO SCH ×3 (07:52→17:53)
[2018-04-09] MEDS: NIFEdipine 30 MG SUSTAINED RELEASE TAB PO SCH (07:52)
[2018-04-09] MEDS: PREGABALIN 25 MG CAP PO SCH ×2 (07:52→21:57)
--- NOTE | 2018-04-09 11:20 | HHI.PR ---
Subjective Remarks Follow-up end-stage renal disease on hemodialysis April 09, 2018-patient seen and examined; he denies any chest pain, shortness of breath or heart palpitation. States he is ready for discharge after outpatient HD is set up Objective Vitals Vital Signs Date Time Temp Pulse Resp B/P (MAP) Pulse Ox O2 Delivery O2 Flow Rate FiO2 04/09/18 08:00 98.2 85 20 142/76 (98) 99 04/09/18 04:00 98.8 92 19 152/77 (102) 96 04/09/18 00:00 Room Air 04/09/18 00:00 97.9 98 17 154/68 (96) 98 04/08/18 23:55 76 04/08/18 21:00 Room Air 04/08/18 20:04 66 04/08/18 20:00 98.1 99 17 120/72 (88) 99 04/08/18 16:39 97.7 63 20 145/87 (106) 100 04/08/18 16:00 84 04/08/18 14:39 04/08/18 14:05 70 15 146/67 (93) 100 Room Air 04/08/18 12:00 78 17 154/73 (100) 98 Room Air 04/08/18 11:22 97 Room Air I/O 04/08/18 04/08/18 04/08/18 04/09/18 04/09/18 04/09/18 06:59 14:59 22:59 06:59 14:59 22:59 Intake Total 480 ml Output Total 1500 ml Balance -1500 ml 480 ml Intake Oral 480 ml Hemodialysis 1500 ml # Voids 1 Result Diagram: 04/09/18 0515 04/09/18 0515 Objective Remarks GENERAL: NAD SKIN: Warm and dry. HEAD: Normocephalic. EYES: No scleral icterus. No injection or drainage. NECK: Supple, trachea midline. No JVD or lymphadenopathy. CARDIOVASCULAR: Regular rate and rhythm without murmurs, gallops, or rubs. RESPIRATORY: Breath sounds equal bilaterally. No accessory muscle use. GASTROINTESTINAL: Abdomen soft, non-tender, nondistended. MUSCULOSKELETAL: No cyanosis, or edema. LUE with AVF with good thrill BACK: Nontender without obvious deformity. No CVA tenderness. A/P Problem List: (1) Hyperglycemia ICD Code: R73.9 - Hyperglycemia, unspecified (2) Anemia in chronic kidney disease (CKD) ICD Code: N18.9 - Chronic kidney disease, unspecified; D63.1 - Anemia in chronic kidney disease (3) ESRD on hemodialysis ICD Code: N18.6 - End stage renal disease; Z99.2 - Dependence on renal dialysis (4) Medical non-compliance ICD Code: Z91.19 - Patient's noncompliance with other medical treatment and regimen (5) HTN (hypertension) ICD Code: I10 - HTN (hypertension) Status: Chronic (6) Hyperkalemia ICD Code: E87.5 - Hyperkalemia Status: Acute Assessment and Plan 52-year-old man with End-stage renal disease on hemodialysis Nephrology consultation appreciated He will need outpatient set up for hemodialysis prior to discharge Hyperkalemia Resolved post treatment in the ED April 08, 2018 Metabolic acidosis-resolved Secondary to renal failure Anemia of chronic kidney disease H&H stable and continue to monitor Hyperglycemia Hemoglobin A1c pending and treat accordingly Hypertension Continue Procardia 30 mg daily Tobacco abuse Tobacco counseling cessation provided Continue nicotine patch Santos Diehl MD Apr 09, 2018 11:20
--- NOTE | 2018-04-09 14:39 | HHI.NPPN ---
Subjective History of Present Illness 52 year old with ESRD HTN need placement for Hemodialysis Objective Data Data Vital Signs Date Time Temp Pulse Resp B/P (MAP) Pulse Ox O2 Delivery O2 Flow Rate FiO2 04/09/18 14:13 98 21 04/09/18 08:00 98.2 85 20 142/76 (98) 99 04/09/18 04:00 98.8 92 19 152/77 (102) 96 04/09/18 00:00 Room Air 04/09/18 00:00 97.9 98 17 154/68 (96) 98 04/08/18 23:55 76 04/08/18 21:00 Room Air 04/08/18 20:04 66 04/08/18 20:00 98.1 99 17 120/72 (88) 99 04/08/18 16:39 97.7 63 20 145/87 (106) 100 04/08/18 16:00 84 04/08/18 14:39 -: 04/09/18 0515 04/09/18 0515 Physical Exam General Appearance: Well Developed, Well Nourished Neck Neck Exam: Neck Supple Pulmonary Resp Exam: Clear Bilaterally, Breath Sounds Equal Cardiology CV Exam: Regular, Normal Sinus Rhythm Gastrointestinal/Abdomen GI Exam: Soft, Non-Tender, Bowel Sounds Present Extremeties Extremities Exam: No Edema Assessment/Plan Problem List: (1) ESRD (end stage renal disease) ICD Codes: N18.6 - End stage renal disease Status: Acute Plan: Patient has no arrangement for dialysis he is on HD try to arrange outpatient dialysis Continue supportive care Avoid nephrotoxins (2) Hyperkalemia ICD Codes: E87.5 - Hyperkalemia Status: Acute Plan: Treated and will recheck later (3) Metabolic acidosis ICD Codes: E87.2 - Acidosis Status: Acute Plan: Due to renal failure (4) HTN (hypertension) ICD Codes: I10 - HTN (hypertension) Status: Chronic Plan: Continue to monitor Matthias Thomas MD Apr 09, 2018 14:39
[2018-04-09 17:00] LABS: HEMOGLOBIN A1C 4.9 % (4.3-6.0)
[2018-04-09] MEDS: REMOVE OLD PATCH T-DERMAL SCH (21:00)
[2018-04-10] VITALS (7 sets, daily range): BP systolic 124–150; BP diastolic 75–89; PULSE 68–97; RESP 16–20; TEMP 97.3–98.3; O2SAT 96–99
[2018-04-10] MEDS: NICOTINE 21 MG/24 HR PATCH T-DERMAL SCH (09:00)
[2018-04-10] MEDS: CALCIUM ACETATE 667 MG CAP PO SCH ×3 (09:57→18:00)
[2018-04-10] MEDS: NIFEdipine 30 MG SUSTAINED RELEASE TAB PO SCH (09:57)
[2018-04-10] MEDS: PREGABALIN 25 MG CAP PO SCH ×2 (09:57→20:55)
[2018-04-10] MEDS: VITAMIN B CMPLX/VITC/FOLIC AC CAP PO SCH (09:58)
--- NOTE | 2018-04-10 11:48 | HHI.PR ---
Subjective Remarks Follow-up end-stage renal disease on hemodialysis April 09, 2018-patient seen and examined; he denies any chest pain, shortness of breath or heart palpitation. States he is ready for discharge after outpatient HD is set up April 10, 2018-patient seen and examined, no complaint. Awaiting for HD that needs to be set up for outpatient Objective Vitals Vital Signs Date Time Temp Pulse Resp B/P (MAP) Pulse Ox O2 Delivery O2 Flow Rate FiO2 04/10/18 08:00 Room Air 04/10/18 08:00 97.3 97 16 145/80 (101) 96 04/10/18 04:00 97.7 82 18 150/84 (106) 98 04/10/18 00:00 97.7 68 18 124/76 (92) 98 04/09/18 22:57 18 04/09/18 20:45 Room Air 04/09/18 20:00 97.6 78 16 135/69 (91) 99 04/09/18 17:26 98 21 04/09/18 16:00 98.1 75 20 128/67 (87) 98 04/09/18 14:13 98 21 04/09/18 12:00 98.4 70 20 137/80 (99) 98 I/O 04/09/18 04/09/18 04/09/18 04/10/18 04/10/18 04/10/18 07:00 15:00 23:00 07:00 15:00 23:00 Intake Total 480 ml 240 ml 720 ml Balance 480 ml 240 ml 720 ml Intake Oral 480 ml 240 ml 720 ml # Voids 4 4 # Bowel Movements 1 1 Result Diagram: 04/09/18 0515 04/09/18 0515 Objective Remarks GENERAL: NAD SKIN: Warm and dry. HEAD: Normocephalic. EYES: No scleral icterus. No injection or drainage. NECK: Supple, trachea midline. No JVD or lymphadenopathy. CARDIOVASCULAR: Regular rate and rhythm without murmurs, gallops, or rubs. RESPIRATORY: Breath sounds equal bilaterally. No accessory muscle use. GASTROINTESTINAL: Abdomen soft, non-tender, nondistended. MUSCULOSKELETAL: No cyanosis, or edema. LUE with AVF with good thrill BACK: Nontender without obvious deformity. No CVA tenderness. A/P Problem List: (1) Hyperglycemia ICD Code: R73.9 - Hyperglycemia, unspecified (2) Anemia in chronic kidney disease (CKD) ICD Code: N18.9 - Chronic kidney disease, unspecified; D63.1 - Anemia in chronic kidney disease (3) ESRD on hemodialysis ICD Code: N18.6 - End stage renal disease; Z99.2 - Dependence on renal dialysis (4) Medical non-compliance ICD Code: Z91.19 - Patient's noncompliance with other medical treatment and regimen (5) HTN (hypertension) ICD Code: I10 - HTN (hypertension) Status: Chronic (6) Hyperkalemia ICD Code: E87.5 - Hyperkalemia Status: Acute Assessment and Plan 52-year-old man with End-stage renal disease on hemodialysis Nephrology consultation appreciated He will need outpatient set up for hemodialysis prior to discharge Hyperkalemia Resolved post treatment in the ED April 08, 2018 Metabolic acidosis-resolved Secondary to renal failure Anemia of chronic kidney disease H&H stable and continue to monitor Hyperglycemia-resolved Hemoglobin A1c 4.9 Hypertension Continue Procardia 30 mg daily Tobacco abuse Tobacco counseling cessation provided Continue nicotine patch Santos Diehl MD Apr 10, 2018 11:48
--- NOTE | 2018-04-10 15:09 | HHI.NPPN ---
Subjective History of Present Illness 52 year old with ESRD HTN need placement for Hemodialysis Objective Data Data Vital Signs Date Time Temp Pulse Resp B/P (MAP) Pulse Ox O2 Delivery O2 Flow Rate FiO2 04/10/18 13:57 98 21 04/10/18 08:00 Room Air 04/10/18 08:00 97.3 97 16 145/80 (101) 96 04/10/18 04:00 97.7 82 18 150/84 (106) 98 04/10/18 00:00 97.7 68 18 124/76 (92) 98 04/09/18 22:57 18 04/09/18 20:45 Room Air 04/09/18 20:00 97.6 78 16 135/69 (91) 99 04/09/18 17:26 98 21 04/09/18 16:00 98.1 75 20 128/67 (87) 98 -: 04/09/18 0515 04/09/18 0515 Physical Exam General Appearance: Well Developed, Well Nourished Neck Neck Exam: Neck Supple Pulmonary Resp Exam: Clear Bilaterally, Breath Sounds Equal Cardiology CV Exam: Regular, Normal Sinus Rhythm Gastrointestinal/Abdomen GI Exam: Soft, Non-Tender, Bowel Sounds Present Extremeties Extremities Exam: No Edema Assessment/Plan Problem List: (1) ESRD (end stage renal disease) ICD Codes: N18.6 - End stage renal disease Status: Acute Plan: Patient has no arrangement for dialysis he is on HD try to arrange outpatient dialysis Continue supportive care Avoid nephrotoxins HJD today await placement (2) Hyperkalemia ICD Codes: E87.5 - Hyperkalemia Status: Acute Plan: Treated and will recheck later (3) Metabolic acidosis ICD Codes: E87.2 - Acidosis Status: Acute Plan: Due to renal failure (4) HTN (hypertension) ICD Codes: I10 - HTN (hypertension) Status: Chronic Plan: Continue to monitor Matthias Thomas MD Apr 10, 2018 15:09
[2018-04-10] MEDS: REMOVE OLD PATCH T-DERMAL SCH (20:55)
[2018-04-11] VITALS (8 sets, daily range): BP systolic 122–159; BP diastolic 67–86; PULSE 72–103; RESP 16–20; TEMP 97.4–98.2; O2SAT 95–100
[2018-04-11] MEDS: NIFEdipine 30 MG SUSTAINED RELEASE TAB PO SCH (07:57)
[2018-04-11] MEDS: NICOTINE 21 MG/24 HR PATCH T-DERMAL SCH (07:58)
[2018-04-11] MEDS: PREGABALIN 25 MG CAP PO SCH ×2 (07:58→20:59)
[2018-04-11] MEDS: CALCIUM ACETATE 667 MG CAP PO SCH ×3 (07:58→16:52)
[2018-04-11] MEDS: VITAMIN B CMPLX/VITC/FOLIC AC CAP PO SCH (08:00)
--- NOTE | 2018-04-11 11:02 | HHI.PR ---
Subjective Remarks Follow-up end-stage renal disease on hemodialysis April 09, 2018-patient seen and examined; he denies any chest pain, shortness of breath or heart palpitation. States he is ready for discharge after outpatient HD is set up April 10, 2018-patient seen and examined, no complaint. Awaiting for HD that needs to be set up for outpatient April 11, 2018-patient seen and examined, stable, no issues overnight Objective Vitals Vital Signs Date Time Temp Pulse Resp B/P (MAP) Pulse Ox O2 Delivery O2 Flow Rate FiO2 04/11/18 08:00 97.5 73 20 122/78 (93) 96 04/11/18 07:15 Room Air 04/11/18 04:43 98.1 103 16 141/67 (91) 95 04/10/18 23:13 98.3 87 16 132/75 (94) 99 04/10/18 21:55 20 04/10/18 20:00 Room Air 04/10/18 19:43 21 04/10/18 19:29 98.1 84 16 150/79 (102) 98 04/10/18 13:57 98 21 04/10/18 12:00 97.4 77 20 146/89 (108) 98 I/O 04/10/18 04/10/18 04/10/18 04/11/18 04/11/18 04/11/18 07:00 15:00 23:00 07:00 15:00 23:00 Intake Total 720 ml 600 ml 960 ml Output Total 2550 ml Balance 720 ml -1950 ml 960 ml Intake Oral 720 ml 600 ml 960 ml Output Urine Total 550 ml Hemodialysis 2000 ml # Voids 4 5 # Bowel Movements 1 2 1 Result Diagram: 04/09/18 0515 04/09/18 0515 Objective Remarks GENERAL: NAD SKIN: Warm and dry. HEAD: Normocephalic. EYES: No scleral icterus. No injection or drainage. NECK: Supple, trachea midline. No JVD or lymphadenopathy. CARDIOVASCULAR: Regular rate and rhythm without murmurs, gallops, or rubs. RESPIRATORY: Breath sounds equal bilaterally. No accessory muscle use. GASTROINTESTINAL: Abdomen soft, non-tender, nondistended. MUSCULOSKELETAL: No cyanosis, or edema. LUE with AVF with good thrill BACK: Nontender without obvious deformity. No CVA tenderness. A/P Problem List: (1) Hyperglycemia ICD Code: R73.9 - Hyperglycemia, unspecified (2) Anemia in chronic kidney disease (CKD) ICD Code: N18.9 - Chronic kidney disease, unspecified; D63.1 - Anemia in chronic kidney disease (3) ESRD on hemodialysis ICD Code: N18.6 - End stage renal disease; Z99.2 - Dependence on renal dialysis (4) Medical non-compliance ICD Code: Z91.19 - Patient's noncompliance with other medical treatment and regimen (5) HTN (hypertension) ICD Code: I10 - HTN (hypertension) Status: Chronic (6) Hyperkalemia ICD Code: E87.5 - Hyperkalemia Status: Acute Assessment and Plan 52-year-old man with End-stage renal disease on hemodialysis Nephrology consultation appreciated He will need outpatient set up for hemodialysis prior to discharge, which hasn't been set up Hyperkalemia Resolved post treatment in the ED April 08, 2018 Metabolic acidosis-resolved Secondary to renal failure Anemia of chronic kidney disease H&H stable and continue to monitor Hyperglycemia-resolved Hemoglobin A1c 4.9 Hypertension Continue Procardia 30 mg daily Tobacco abuse Tobacco counseling cessation provided Continue nicotine patch Santos Diehl MD Apr 11, 2018 11:02
--- NOTE | 2018-04-11 15:57 | HHI.NPPN ---
Subjective History of Present Illness 52 year old with ESRD HTN need placement for Hemodialysis Objective Data Data Vital Signs Date Time Temp Pulse Resp B/P (MAP) Pulse Ox O2 Delivery O2 Flow Rate FiO2 04/11/18 13:35 96 21 04/11/18 12:00 97.7 72 20 159/86 (110) 100 04/11/18 08:00 97.5 73 20 122/78 (93) 96 04/11/18 07:15 Room Air 04/11/18 04:43 98.1 103 16 141/67 (91) 95 04/10/18 23:13 98.3 87 16 132/75 (94) 99 04/10/18 21:55 20 04/10/18 20:00 Room Air 04/10/18 19:43 21 04/10/18 19:29 98.1 84 16 150/79 (102) 98 -: 04/09/18 0515 04/09/18 0515 Physical Exam General Appearance: Well Developed, Well Nourished Neck Neck Exam: Neck Supple Pulmonary Resp Exam: Clear Bilaterally, Breath Sounds Equal Cardiology CV Exam: Regular, Normal Sinus Rhythm Gastrointestinal/Abdomen GI Exam: Soft, Non-Tender, Bowel Sounds Present Extremeties Extremities Exam: No Edema Assessment/Plan Problem List: (1) ESRD (end stage renal disease) ICD Codes: N18.6 - End stage renal disease Status: Acute Plan: Patient has no arrangement for dialysis he is on HD try to arrange outpatient dialysis Continue supportive care Avoid nephrotoxins HD tomorrow and dc after dialysis if dialysis arranged add Zemplar 1 mcg for secondary HPTH (2) Hyperkalemia ICD Codes: E87.5 - Hyperkalemia Status: Acute Plan: Treated and will recheck later (3) Metabolic acidosis ICD Codes: E87.2 - Acidosis Status: Acute Plan: Due to renal failure (4) HTN (hypertension) ICD Codes: I10 - HTN (hypertension) Status: Chronic Plan: Continue to monitor Matthias Thomas MD Apr 11, 2018 15:57
[2018-04-11] MEDS ORDERED: PARICALCITOL 1 MCG CAP PO ONE (16:00)
[2018-04-11] MEDS: REMOVE OLD PATCH T-DERMAL SCH (20:59)
[2018-04-12 04:48] VITALS: BP 122/60; PULSE 80; RESP 16; TEMP 97.4; O2SAT 95
[2018-04-12 08:00] VITALS: BP 137/69; PULSE 75; RESP 18; TEMP 98.1; O2SAT 97
[2018-04-12] MEDS: NICOTINE 21 MG/24 HR PATCH T-DERMAL SCH (09:00)
[2018-04-12] MEDS: NIFEdipine 30 MG SUSTAINED RELEASE TAB PO SCH (09:10)
[2018-04-12] MEDS: VITAMIN B CMPLX/VITC/FOLIC AC CAP PO SCH (09:10)
[2018-04-12] MEDS: PARICALCITOL 1 MCG CAP PO SCH (09:10)
[2018-04-12] MEDS: PREGABALIN 25 MG CAP PO SCH ×2 (09:10→20:12)
[2018-04-12] MEDS: CALCIUM ACETATE 667 MG CAP PO SCH ×3 (09:10→18:03)
[2018-04-12 09:56] VITALS: O2SAT 97
--- NOTE | 2018-04-12 10:48 | HHI.PR ---
Subjective Remarks Follow-up end-stage renal disease on hemodialysis April 09, 2018-patient seen and examined; he denies any chest pain, shortness of breath or heart palpitation. States he is ready for discharge after outpatient HD is set up April 10, 2018-patient seen and examined, no complaint. Awaiting for HD that needs to be set up for outpatient April 11, 2018-patient seen and examined, stable, no issues overnight April 12, 2018-patient seen and examined, plan for possible hemodialysis today. Patient has no issues. Objective Vitals Vital Signs Date Time Temp Pulse Resp B/P (MAP) Pulse Ox O2 Delivery O2 Flow Rate FiO2 04/12/18 09:56 97 04/12/18 08:00 98.1 75 18 137/69 (91) 97 04/12/18 08:00 Room Air 04/12/18 04:48 97.4 80 16 122/60 (80) 95 04/11/18 23:21 98.2 87 16 138/69 (92) 96 04/11/18 21:59 16 04/11/18 20:15 Room Air 04/11/18 19:28 97.4 82 16 136/75 (95) 100 04/11/18 17:46 96 21 04/11/18 16:00 98.2 83 20 152/72 (98) 96 04/11/18 13:35 96 21 04/11/18 12:00 97.7 72 20 159/86 (110) 100 I/O 04/11/18 04/11/18 04/11/18 04/12/18 04/12/18 04/12/18 07:00 15:00 23:00 07:00 15:00 23:00 Intake Total 960 ml 480 ml 1140 ml Balance 960 ml 480 ml 1140 ml Intake Oral 960 ml 480 ml 1140 ml # Voids 5 5 8 # Bowel Movements 1 2 2 Result Diagram: 04/09/1815 04/09/18 0515 Objective Remarks GENERAL: NAD SKIN: Warm and dry. HEAD: Normocephalic. EYES: No scleral icterus. No injection or drainage. NECK: Supple, trachea midline. No JVD or lymphadenopathy. CARDIOVASCULAR: Regular rate and rhythm without murmurs, gallops, or rubs. RESPIRATORY: Breath sounds equal bilaterally. No accessory muscle use. GASTROINTESTINAL: Abdomen soft, non-tender, nondistended. MUSCULOSKELETAL: No cyanosis, or edema. LUE with AVF with good thrill BACK: Nontender without obvious deformity. No CVA tenderness. A/P Problem List: (1) Hyperglycemia ICD Code: R73.9 - Hyperglycemia, unspecified (2) Anemia in chronic kidney disease (CKD) ICD Code: N18.9 - Chronic kidney disease, unspecified; D63.1 - Anemia in chronic kidney disease (3) ESRD on hemodialysis ICD Code: N18.6 - End stage renal disease; Z99.2 - Dependence on renal dialysis (4) Medical non-compliance ICD Code: Z91.19 - Patient's noncompliance with other medical treatment and regimen (5) HTN (hypertension) ICD Code: I10 - HTN (hypertension) Status: Chronic (6) Hyperkalemia ICD Code: E87.5 - Hyperkalemia Status: Acute Assessment and Plan 52-year-old man with End-stage renal disease on hemodialysis Nephrology consultation appreciated He will need outpatient set up for hemodialysis prior to discharge, which hasn't been set up Plan for possible hemodialysis today Hyperkalemia Resolved post treatment in the ED April 08, 2018 Metabolic acidosis-resolved Secondary to renal failure Anemia of chronic kidney disease H&H stable and continue to monitor Hyperglycemia-resolved Hemoglobin A1c 4.9 Hypertension Normotensive continue Procardia 30 mg daily Tobacco abuse Tobacco counseling cessation provided Continue nicotine patch Santos Diehl MD Apr 12, 2018 10:48
[2018-04-12] MEDS ORDERED: PREG25 PO (10:51)
[2018-04-12] MEDS ORDERED: LIDO1CRE31 TOPICAL (10:51)
[2018-04-12] MEDS ORDERED: NEPHRO PO (10:51)
[2018-04-12] MEDS ORDERED: NIFE30TA8 PO (10:51)
[2018-04-12] MEDS ORDERED: PARI1 PO (10:51)
[2018-04-12 12:00] VITALS: BP 117/77; PULSE 70; RESP 18; TEMP 97.3; O2SAT 97
--- NOTE | 2018-04-12 14:22 | HHI.NPPN ---
Subjective History of Present Illness 52 year old with ESRD HTN need placement for Hemodialysis Objective Data Data Vital Signs Date Time Temp Pulse Resp B/P (MAP) Pulse Ox O2 Delivery O2 Flow Rate FiO2 04/12/18 12:00 97.3 70 18 117/77 (90) 97 04/12/18 09:56 97 04/12/18 08:00 98.1 75 18 137/69 (91) 97 04/12/18 08:00 Room Air 04/12/18 04:48 97.4 80 16 122/60 (80) 95 04/11/18 23:21 98.2 87 16 138/69 (92) 96 04/11/18 21:59 16 04/11/18 20:15 Room Air 04/11/18 19:28 97.4 82 16 136/75 (95) 100 04/11/18 17:46 96 21 04/11/18 16:00 98.2 83 20 152/72 (98) 96 -: 04/09/18 0515 04/09/18 0515 Physical Exam General Appearance: Well Developed, Well Nourished Neck Neck Exam: Neck Supple Pulmonary Resp Exam: Clear Bilaterally, Breath Sounds Equal Cardiology CV Exam: Regular, Normal Sinus Rhythm Gastrointestinal/Abdomen GI Exam: Soft, Non-Tender, Bowel Sounds Present Extremeties Extremities Exam: No Edema Assessment/Plan Problem List: (1) ESRD (end stage renal disease) ICD Codes: N18.6 - End stage renal disease Status: Acute Plan: Patient has no arrangement for dialysis he is on HD try to arrange outpatient dialysis Continue supportive care Avoid nephrotoxins HD today Seen during hemodialysis ultrafiltration of 2 L await placement add Zemplar 1 mcg for secondary HPTH (2) Hyperkalemia ICD Codes: E87.5 - Hyperkalemia Status: Acute Plan: Treated and will recheck later (3) Metabolic acidosis ICD Codes: E87.2 - Acidosis Status: Acute Plan: Due to renal failure (4) HTN (hypertension) ICD Codes: I10 - HTN (hypertension) Status: Chronic Plan: Continue to monitor Matthias Thomas MD Apr 12, 2018 14:22
[2018-04-12 17:35] VITALS: O2SAT 97
[2018-04-12 20:00] VITALS: BP 148/71; PULSE 83; RESP 17; TEMP 97.8; O2SAT 100
[2018-04-12] MEDS: REMOVE OLD PATCH T-DERMAL SCH (20:13)
[2018-04-13] VITALS (8 sets, daily range): BP systolic 111–146; BP diastolic 67–85; PULSE 81–99; RESP 16–20; TEMP 97.3–98.1; O2SAT 97–100
[2018-04-13] MEDS: NIFEdipine 30 MG SUSTAINED RELEASE TAB PO SCH (07:52)
[2018-04-13] MEDS: PREGABALIN 25 MG CAP PO SCH ×2 (07:52→20:08)
[2018-04-13] MEDS: PARICALCITOL 1 MCG CAP PO SCH (07:52)
[2018-04-13] MEDS: VITAMIN B CMPLX/VITC/FOLIC AC CAP PO SCH (07:53)
[2018-04-13] MEDS: NICOTINE 21 MG/24 HR PATCH T-DERMAL SCH (07:53)
[2018-04-13] MEDS: CALCIUM ACETATE 667 MG CAP PO SCH ×3 (07:53→17:37)
--- NOTE | 2018-04-13 10:21 | HHI.PR ---
Subjective Remarks Follow-up end-stage renal disease on hemodialysis April 09, 2018-patient seen and examined; he denies any chest pain, shortness of breath or heart palpitation. States he is ready for discharge after outpatient HD is set up April 10, 2018-patient seen and examined, no complaint. Awaiting for HD that needs to be set up for outpatient April 11, 2018-patient seen and examined, stable, no issues overnight April 12, 2018-patient seen and examined, plan for possible hemodialysis today. Patient has no issues. April 13, 2018-patient seen and examined, patient had hemodialysis yesterday and stable today. Objective Vitals Vital Signs Date Time Temp Pulse Resp B/P (MAP) Pulse Ox O2 Delivery O2 Flow Rate FiO2 04/13/18 08:00 97.6 98 20 146/83 (104) 98 04/13/18 04:00 98.1 88 16 142/77 (98) 100 04/13/18 00:00 98.1 95 19 135/83 (100) 98 04/12/18 20:00 97.8 83 17 148/71 (96) 100 04/12/18 17:35 97 21 04/12/18 12:00 97.3 70 18 117/77 (90) 97 I/O 04/12/18 04/12/18 04/12/18 04/13/18 04/13/18 04/13/18 07:00 15:00 23:00 07:00 15:00 23:00 Intake Total 1140 ml 720 ml 660 ml Output Total 2250 ml Balance 1140 ml -1530 ml 660 ml Intake Oral 1140 ml 720 ml 660 ml Output Urine Total 250 ml Hemodialysis 2000 ml # Voids 8 3 # Bowel Movements 2 2 1 Result Diagram: 04/09/18 0515 04/09/18 0515 Objective Remarks GENERAL: NAD SKIN: Warm and dry. HEAD: Normocephalic. EYES: No scleral icterus. No injection or drainage. NECK: Supple, trachea midline. No JVD or lymphadenopathy. CARDIOVASCULAR: Regular rate and rhythm without murmurs, gallops, or rubs. RESPIRATORY: Breath sounds equal bilaterally. No accessory muscle use. GASTROINTESTINAL: Abdomen soft, non-tender, nondistended. MUSCULOSKELETAL: No cyanosis, or edema. LUE with AVF with good thrill BACK: Nontender without obvious deformity. No CVA tenderness. A/P Problem List: (1) Hyperglycemia ICD Code: R73.9 - Hyperglycemia, unspecified (2) Anemia in chronic kidney disease (CKD) ICD Code: N18.9 - Chronic kidney disease, unspecified; D63.1 - Anemia in chronic kidney disease (3) ESRD on hemodialysis ICD Code: N18.6 - End stage renal disease; Z99.2 - Dependence on renal dialysis (4) Medical non-compliance ICD Code: Z91.19 - Patient's noncompliance with other medical treatment and regimen (5) HTN (hypertension) ICD Code: I10 - HTN (hypertension) Status: Chronic (6) Hyperkalemia ICD Code: E87.5 - Hyperkalemia Status: Acute Assessment and Plan 52-year-old man with End-stage renal disease on hemodialysis Nephrology consultation appreciated Hemodialysis per nephrology He will need outpatient set up for hemodialysis prior to discharge, which hasn't been set up Hyperkalemia Resolved post treatment in the ED April 08, 2018 Metabolic acidosis-resolved Secondary to renal failure Anemia of chronic kidney disease H&H stable and continue to monitor Secondary PTH Continue Zemplar Hyperglycemia-resolved Hemoglobin A1c 4.9 Hypertension Normotensive continue Procardia 30 mg daily Tobacco abuse Tobacco counseling cessation provided Continue nicotine patch Santos Diehl MD Apr 13, 2018 10:21
--- NOTE | 2018-04-13 15:02 | HHI.NPPN ---
Subjective History of Present Illness 52 year old with ESRD HTN need placement for Hemodialysis Objective Data Data Vital Signs Date Time Temp Pulse Resp B/P (MAP) Pulse Ox O2 Delivery O2 Flow Rate FiO2 04/13/18 12:00 97.9 81 20 111/67 (82) 98 04/13/18 08:24 97 21 04/13/18 08:00 97.6 98 20 146/83 (104) 98 04/13/18 04:00 98.1 88 16 142/77 (98) 100 04/13/18 00:00 98.1 95 19 135/83 (100) 98 04/12/18 20:00 97.8 83 17 148/71 (96) 100 04/12/18 17:35 97 21 -: 04/09/18 0515 04/09/18 0515 Physical Exam General Appearance: Well Developed, Well Nourished Neck Neck Exam: Neck Supple Pulmonary Resp Exam: Clear Bilaterally, Breath Sounds Equal Cardiology CV Exam: Regular, Normal Sinus Rhythm Gastrointestinal/Abdomen GI Exam: Soft, Non-Tender, Bowel Sounds Present Extremeties Extremities Exam: No Edema Assessment/Plan Problem List: (1) ESRD (end stage renal disease) ICD Codes: N18.6 - End stage renal disease Status: Acute Plan: Patient has no arrangement for dialysis he is on HD try to arrange outpatient dialysis Continue supportive care Avoid nephrotoxins HD done yesterday await placement On Zemplar 1 mcg for secondary HPTH (2) Hyperkalemia ICD Codes: E87.5 - Hyperkalemia Status: Acute Plan: Treated and will recheck later (3) Metabolic acidosis ICD Codes: E87.2 - Acidosis Status: Acute Plan: Due to renal failure (4) HTN (hypertension) ICD Codes: I10 - HTN (hypertension) Status: Chronic Plan: Continue to monitor Matthias Thomas MD Apr 13, 2018 15:02
[2018-04-13] MEDS: REMOVE OLD PATCH T-DERMAL SCH (19:43)
[2018-04-14] VITALS: BP 133/88; PULSE 85; RESP 17; TEMP 98; O2SAT 98
[2018-04-14 04:00] VITALS: BP 130/100; PULSE 75; RESP 16; TEMP 97.7; O2SAT 97
[2018-04-14 08:02] VITALS: BP 150/72; PULSE 70; RESP 17; TEMP 97.6; O2SAT 98
[2018-04-14 08:14] LABS: BICARBONATE 23.1 MEQ/L (21.0-32.0); CALCIUM 8.8 MG/DL (8.5-10.1); CREATININE 6.98 MG/DL (0.60-1.30)
[2018-04-14] MEDS: VITAMIN B CMPLX/VITC/FOLIC AC CAP PO SCH (09:00)
[2018-04-14] MEDS: NICOTINE 21 MG/24 HR PATCH T-DERMAL SCH (09:00)
--- NOTE | 2018-04-14 11:05 | HHI.PR ---
Subjective Remarks Follow-up end-stage renal disease on hemodialysis April 09, 2018-patient seen and examined; he denies any chest pain, shortness of breath or heart palpitation. States he is ready for discharge after outpatient HD is set up April 10, 2018-patient seen and examined, no complaint. Awaiting for HD that needs to be set up for outpatient April 11, 2018-patient seen and examined, stable, no issues overnight April 12, 2018-patient seen and examined, plan for possible hemodialysis today. Patient has no issues. April 13, 2018-patient seen and examined, patient had hemodialysis yesterday and stable today. April 14, 2018: Appears stable. Discussed walo with CM for DC plan. Patient needs CXR to r/o TB for DC purposes. Order CXR. Objective Vitals Vital Signs Date Time Temp Pulse Resp B/P (MAP) Pulse Ox O2 Delivery O2 Flow Rate FiO2 04/14/18 08:02 97.6 70 17 150/72 (98) 98 04/14/18 04:00 97.7 75 16 130/100 (110) 97 04/14/18 00:00 98.0 85 17 133/88 (103) 98 04/13/18 20:45 98 21 04/13/18 20:00 97.4 99 18 139/75 (96) 99 04/13/18 20:00 Room Air 04/13/18 16:00 97.3 93 20 145/85 (105) 98 04/13/18 12:00 97.9 81 20 111/67 (82) 98 I/O 04/13/18 04/13/18 04/13/18 04/14/18 04/14/18 04/14/18 07:00 15:00 23:00 07:00 15:00 23:00 Intake Total 660 ml 960 ml 1940 ml Output Total 1800 ml Balance 660 ml 960 ml 140 ml Intake Oral 660 ml 960 ml 1940 ml Output Urine Total 1800 ml # Voids 6 # Bowel Movements 1 2 Result Diagram: 04/14/18 0636 Objective Remarks GENERAL: 52 yo male appears in NAD. CARDIOVASCULAR: Regular rate and rhythm without murmurs, gallops, or rubs. RESPIRATORY: Breath sounds equal bilaterally. No accessory muscle use. GASTROINTESTINAL: Abdomen soft, non-tender, nondistended. MUSCULOSKELETAL: No cyanosis, or edema. LUE with AVF with good thrill BACK: Nontender without obvious deformity. No CVA tenderness. A/P Problem List: (1) Hyperglycemia ICD Code: R73.9 - Hyperglycemia, unspecified (2) Anemia in chronic kidney disease (CKD) ICD Code: N18.9 - Chronic kidney disease, unspecified; D63.1 - Anemia in chronic kidney disease (3) ESRD on hemodialysis ICD Code: N18.6 - End stage renal disease; Z99.2 - Dependence on renal dialysis (4) Medical non-compliance ICD Code: Z91.19 - Patient's noncompliance with other medical treatment and regimen (5) HTN (hypertension) ICD Code: I10 - HTN (hypertension) Status: Chronic (6) Hyperkalemia ICD Code: E87.5 - Hyperkalemia Status: Acute Assessment and Plan 52-year-old man with End-stage renal disease on hemodialysis Nephrology consultation appreciated Hemodialysis per nephrology He will need outpatient set up for hemodialysis prior to discharge, which hasn' t been set up Hyperkalemia Resolved post treatment in the ED April 08, 2018 Metabolic acidosis-resolved Secondary to renal failure Anemia of chronic kidney disease H&H stable and continue to monitor Secondary PTH Continue Zemplar Hyperglycemia-resolved Hemoglobin A1c 4.9 Hypertension Normotensive continue Procardia 30 mg daily Tobacco abuse Tobacco counseling cessation provided Continue nicotine patch Discussed with the patient, nurse, Brandi Balderas MD Apr 14, 2018 11:05
--- NOTE | 2018-04-14 11:32 | HHI.NPPN ---
Subjective History of Present Illness 52 year old with ESRD HTN need placement for Hemodialysis Objective Data Data Vital Signs Date Time Temp Pulse Resp B/P (MAP) Pulse Ox O2 Delivery O2 Flow Rate FiO2 04/14/18 08:02 97.6 70 17 150/72 (98) 98 04/14/18 08:00 Room Air 04/14/18 04:00 97.7 75 16 130/100 (110) 97 04/14/18 00:00 98.0 85 17 133/88 (103) 98 04/13/18 20:45 98 21 04/13/18 20:00 97.4 99 18 139/75 (96) 99 04/13/18 20:00 Room Air 04/13/18 16:00 97.3 93 20 145/85 (105) 98 04/13/18 12:00 97.9 81 20 111/67 (82) 98 -: 04/14/18 0636 Physical Exam General Appearance: Well Developed, Well Nourished Neck Neck Exam: Neck Supple Pulmonary Resp Exam: Clear Bilaterally, Breath Sounds Equal Cardiology CV Exam: Regular, Normal Sinus Rhythm Gastrointestinal/Abdomen GI Exam: Soft, Non-Tender, Bowel Sounds Present Extremeties Extremities Exam: No Edema Assessment/Plan Problem List: (1) ESRD (end stage renal disease) ICD Codes: N18.6 - End stage renal disease Status: Acute Plan: Patient has no arrangement for dialysis he is on HD try to arrange outpatient dialysis Continue supportive care Avoid nephrotoxins HD progress noted UF 1.5 L await placement On Zemplar 1 mcg for secondary HPTH (2) Hyperkalemia ICD Codes: E87.5 - Hyperkalemia Status: Acute Plan: Treated and will recheck later (3) Metabolic acidosis ICD Codes: E87.2 - Acidosis Status: Acute Plan: Due to renal failure (4) HTN (hypertension) ICD Codes: I10 - HTN (hypertension) Status: Chronic Plan: Continue to monitor Matthias Thomas MD Apr 14, 2018 11:32
[2018-04-14 13:00] VITALS: BP 150/68; PULSE 68; RESP 20
[2018-04-14] MEDS: PARICALCITOL 1 MCG CAP PO SCH (13:02)
[2018-04-14] MEDS: CALCIUM ACETATE 667 MG CAP PO SCH (13:02)
[2018-04-14] MEDS: NIFEdipine 30 MG SUSTAINED RELEASE TAB PO SCH (13:02)
[2018-04-14] MEDS: PREGABALIN 25 MG CAP PO SCH (13:02)
--- NOTE | 2018-04-14 13:20 | RADRPT ---
EXAM DATE: 04/14/2018 1:17 PM EDT AGE/SEX: 52 years / Male INDICATIONS: Chest pain. CLINICAL DATA: This is the patient's subsequent encounter. Patient reports that signs and symptoms h ave been present for 1 day and indicates a pain score of 1/10. MEDICAL/SURGICAL HISTORY: Hypertension. Smoker. None. COMPARISON: [facility] – [place], CHEST SINGLE AP, 12/20/2015. . FINDINGS: A single AP view of the chest demonstrates the lungs to be symmetrically aerated without evidence of mass, infiltrate or effusion. The cardiomediastinal contours are unremarkable. Osseous structures a re intact. CONCLUSION: No acute disease. Electronically signed by: Jonnathan Borrero MD 04/14/2018 1:18 PM EDT
[2018-04-14 14:28] VITALS: O2SAT 98
--- NOTE | 2018-04-14 15:08 | HHI.DS ---
Discharge Summary Admission Date Apr 08, 2018 at 11:24 Admitting Diagnosis Hyperkalemia, esrd (1) Hyperglycemia ICD Code: R73.9 - Hyperglycemia, unspecified (2) Anemia in chronic kidney disease (CKD) ICD Code: N18.9 - Chronic kidney disease, unspecified; D63.1 - Anemia in chronic kidney disease (3) ESRD on hemodialysis ICD Code: N18.6 - End stage renal disease; Z99.2 - Dependence on renal dialysis (4) Medical non-compliance ICD Code: Z91.19 - Patient's noncompliance with other medical treatment and regimen (5) HTN (hypertension) ICD Code: I10 - HTN (hypertension) Status: Chronic (6) Hyperkalemia ICD Code: E87.5 - Hyperkalemia Status: Acute Brief History - From Admission 52-year-old male for past medical history of end-stage renal disease on hemodialysis presented to the ED today because he states it has been over a week since he moved back in town that he didn't go for HD. He initially call Dr. Ed Elise, who refused to see the patient and instructed him to come to the ED. Patient denies any chest pain or shortness of breath. He only complains of leg cramping which he attributes to his restless leg syndrome. Abnormal lab in the ED include elevated potassium for which patient was treated. Nephrology was consulted CBC/BMP: 04/14/18 0636 Significant Findings Laboratory Tests Test 04/14/18 06:36 Blood Urea Nitrogen 63 MG/DL (7-18) Creatinine 6.98 MG/DL (0.60-1.30) Potassium Level 6.0 MEQ/L (3.5-5.1) Estimat Glomerular Filtration Rate 8 ML/MIN (>89) PE at Discharge GENERAL: 52 yo male appears in NAD. CARDIOVASCULAR: Regular rate and rhythm without murmurs, gallops, or rubs. RESPIRATORY: Breath sounds equal bilaterally. No accessory muscle use. GASTROINTESTINAL: Abdomen soft, non-tender, nondistended. MUSCULOSKELETAL: No cyanosis, or edema. LUE with AVF with good thrill BACK: Nontender without obvious deformity. No CVA tenderness. Pt Condition on Discharge: Stable Discharge Disposition: Discharge Home Discharge Instructions DIET: Follow Instructions for: Heart Healthy Diet Activities you can perform: Regular-No Restrictions Brandi Oneill MD Apr 14, 2018 15:08
== END 2018-04-14 16:21 | disposition home or self-care (01) | DRG 682 ==
LOC: NEPC 09:35 → NEDA 11:24 → N04A 14:48
PROVIDERS: ADMIT Hospitalist; ATTEND Hospitalist
PROC: 5A1D70Z Performance of Urinary Filtration, Intermittent, Less than 6 Hours Per Day (ICD-10-PCS; principal; 2018-04-08)
DX: I12.0 Hypertensive chronic kidney disease with stage 5 chronic kidney disease or end stage renal disease (principal); N18.6 End stage renal disease; E87.2 Acidosis; N25.81 Secondary hyperparathyroidism of renal origin; N13.8 Other obstructive and reflux uropathy; E87.5 Hyperkalemia; D63.1 Anemia in chronic kidney disease; G25.81 Restless legs syndrome; R73.9 Hyperglycemia, unspecified; F17.210 Nicotine dependence, cigarettes, uncomplicated; F12.90 Cannabis use, unspecified, uncomplicated; Z88.2 Allergy status to sulfonamides; Z91.15 Patient's noncompliance with renal dialysis; Z91.19 Patient's noncompliance with other medical treatment and regimen; Z99.2 Dependence on renal dialysis
CPT/HCPCS: 71045; 80048; 80053; 80074; 82306; 83036; 83970; 84100; 84132; 85025; 90935; 93005; 96374; 96375; J0610; J1815

== ENCOUNTER 2018-06-05 10:02 | Observation (INO) ==
[2018-06-05 10:12] VITALS: RESP 18
[2018-06-05] MEDS ORDERED: Calcium Gluconate Inj 1 GM in Dextrose 5% in Water Inj 100 ML IV.SIG ONE ×2 (10:28)
[2018-06-05 11:01] LABS: Baso % (Auto) 0.6 % (0.0-2.0); Eos # (Auto) 0.3 th/mm3 (0.0-0.4); Eos % (Auto) 4.3 % (0.0-4.0); Hematocrit 34.6 % (39.0-51.0); Hemoglobin 11.8 gm/dL (13.0-17.0); Lymph # (Auto) 1.5 th/mm3 (1.0-4.8); Lymph % (Auto) 21.4 % (9.0-44.0); Mean Corpuscular HGB Conc 34.1 % (32.0-36.0); Mean Corpuscular Hemoglobin 31.7 pg (27.0-34.0); Mean Corpuscular Volume 92.8 fL (80.0-100.0); Mean Platelet Volume 8.3 fL (7.0-11.0); Mono # (Auto) 0.5 th/mm3 (0.0-0.9); Mono % (Auto) 7.2 % (0.0-8.0); Neut # (Auto) 4.6 th/mm3 (1.8-7.7); Neut % (Auto) 66.5 % (16.0-70.0); Platelet Count 183 th/mm3 (150-450); Red Blood Count 3.73 mil/mm3 (4.50-5.90)
[2018-06-05 11:06] LABS: Bilirubin,Urine Negative (Negative); Clarity,Urine Clear (Clear); Color,Urine Straw (Yellw/Straw); Glucose,Urine (UA) 50 mg/dL (Negative); Leukocyte Esterase,Urine Negative (Negative); Nitrite,Urine Negative (Negative); Specific Gravity,Urine 1.008 (1.002-1.035)
--- NOTE | 2018-06-05 11:15 | ED ---
HPI General Chief Complaint: Recheck/Abnormal Lab/Rx Stated Complaint: Potassiums High Time Seen by Provider: 06/05/18 10:26 History of Present Illness HPI narrative: The patient is a 53-year-old man with end-stage renal disease and restless leg syndrome presenting to the emergency department following the results of an abnormal lab. The patient still makes urine and gets dialysis on MWF but missed his last 2 sessions. He received a phone call from his dialysis center telling him that he had a potassium in the sevens and to report to the emergency department immediately. The patient says that he is asymptomatic with no muscle weakness or fatigue, abdominal pain, nausea vomiting, or fevers or chills, swelling, shortness of breath, or chest pain. Related Data Home Medications Medication Instructions Recorded Confirmed lidocaine-prilocaine 06/05/18 06/05/18 Previous Rx's Medication Instructions Recorded calcium acetate 2 cap PO QID #240 cap 06/05/18 clonidine HCl [Catapres] 0.1 mg PO BID #60 tab 06/05/18 pregabalin [Lyrica] 1 cap PO BID #60 cap 06/05/18 ropinirole 1 tab PO TID #90 tab 06/05/18 trazodone 1 tab PO HS #30 tab 06/05/18 Allergies Allergy/AdvReac Type Severity Reaction Status Date / Time sulfamethoxazole Allergy Unknown Anaphylaxis Verified 06/05/18 12:49 trimethoprim Allergy Unknown Anaphylaxis Verified 06/05/18 12:49 Review of Systems Constitutional Denies chills and Denies fever(s) Eyes Denies blurry vision and Denies loss of vision ENT Denies dizziness and Denies sore throat Cardiovascular Denies chest pain and Denies diaphoresis Respiratory Denies cough and Denies dyspnea Gastrointestinal Denies diarrhea and Denies nausea Genitourinary Denies dysuria and Denies flank pain Musculoskeletal Denies limited range of motion and Denies muscle weakness Integumentary/Breasts Denies lesions and Denies rash Neurologic Denies dizziness, Denies numbness and Denies tingling Psychiatric Denies confusion and Denies irritability Endocrine Denies fatigue and Denies polyuria [facility] Medical History Medical History AV fistula (Acute) AV fistula (Acute) Dialysis patient (Acute) Hypertension (Acute) Marijuana abuse (Acute) Noncompliance (Acute) Renal disease (Acute) Renal failure (Acute) Restless leg syndrome (Acute) Tobacco abuse (Acute) Family History Family History Other Hypertension Social History Social History Substance History: Active Abuse Second Hand Smoke Exposure: Yes Smoking Status: Current every day smoker Tobacco Type: Cigarettes How Often Do You Have a Drink Containing Alcohol: Never Recent Travel in [facility] within the Last 8 Weeks: No Recent Out of Country Travel within the Last 8 Weeks: No Substance Abuse Detail Marijuana: Substance Use Status: Active Route Used Substance Abuse: Inhalation Last Used: "often" Immunization History Tetanus Immunization: <5 Years Hx Influenza Vaccine This Season: No Exam Narrative Exam Narrative: GENERAL: Well-developed and well-nourished male appearing in no acute respiratory distress SKIN: Focused skin assessment warm/dry. HEAD: Atraumatic. Normocephalic. EYES: Pupils equal and round. No scleral icterus. No injection or drainage. ENT: No nasal bleeding or discharge. Mucous membranes pink and moist. NECK: Trachea midline. No JVD. CARDIOVASCULAR: Regular rate and rhythm. No murmur appreciated. No S3 or S4. RESPIRATORY: No accessory muscle use. Clear to auscultation. Breath sounds equal bilaterally. No crackles, rhonchi, or rales. GASTROINTESTINAL: Abdomen soft, non-tender, nondistended. Hepatic and splenic margins not palpable. MUSCULOSKELETAL: No obvious deformities. No clubbing. No cyanosis. No edema. NEUROLOGICAL: Awake and alert. No obvious cranial nerve deficits. Motor grossly within normal limits. Normal speech. Course Initial Documented Vital Signs Temperature 98.2 F 06/05/18 10:08 Pulse Rate 71 06/05/18 10:08 Respiratory Rate 18 06/05/18 10:08 Blood Pressure 167/75 H 06/05/18 10:08 Pulse Oximetry 98 06/05/18 10:08 Last Documented Vital Signs Temperature 97.9 F 06/05/18 21:38 Pulse Rate 71 06/05/18 21:38 Respiratory Rate 18 06/05/18 21:38 Blood Pressure 136/77 06/05/18 21:38 Pulse Oximetry 98 06/05/18 21:38 Medical Decision Making MDM Narrative Medical decision making narrative: The patient is a 53-year-old male with end- stage renal disease presenting to the emergency department for evaluation of an abnormal potassium level. The patient has missed his last 2-3 episodes of dialysis and received a phone call from the dialysis center that his last potassium was in the sevens. Patient is asymptomatic and on repeat lab values his potassium here was 6.6. His EKG showed peaked T waves in leads V3 to the patient was administered calcium chloride, insulin 10 units, and 50 mL of glucose. Fell the patient was discussed with his clinical psychology professor Dr. Thomas who recommends that the patient be admitted for dialysis today. The patient will be admitted for observation and dialysis. Differential Diagnosis Differential Diagnosis: Hyperkalemia, dialysis noncompliance, dehydration, metabolic derangement Lab Data Result diagrams: 06/05/18 10:35 06/05/18 10:35 Lab Results 06/05/18 06/05/18 06/05/18 Range/Units 10:35 10:35 10:35 WBC 7.0 (4.0-11.0) th/mm3 RBC 3.73 L (4.50-5.90) mil/mm3 Hgb 11.8 L (13.0-17.0) gm/dL Hct 34.6 L (39.0-51.0) % MCV 92.8 (80.0-100.0) fL MCH 31.7 (27.0-34.0) pg MCHC 34.1 (32.0-36.0) % RDW 15.0 (11.6-17.2) % Plt Count 183 (150-450) th/mm3 MPV 8.3 (7.0-11.0) fL Neut % (Auto) 66.5 (16.0-70.0) % Lymph % (Auto) 21.4 (9.0-44.0) % Power % (Auto) 7.2 (0.0-8.0) % Eos % (Auto) 4.3 H (0.0-4.0) % Baso % (Auto) 0.6 (0.0-2.0) % Neut # (Auto) 4.6 (1.8-7.7) th/mm3 Lymph # (Auto) 1.5 (1.0-4.8) th/mm3 Power # (Auto) 0.5 (0.0-0.9) th/mm3 Eos # (Auto) 0.3 (0.0-0.4) th/mm3 Baso # (Auto) 0.0 (0.0-0.2) th/mm3 WBC Differential . Differential Comment Auto diff final Sodium 139 (136-145) meq/L Potassium 6.6 H* (3.5-5.1) meq/L Chloride 110 H (98-107) meq/L Carbon Dioxide 19.5 L (21.0-32.0) meq/L Anion Gap 10 (5-15) meq/L BUN 66 H (7-18) mg/dL Creatinine 7.82 H (0.60-1.30) mg/dL Estimated GFR 7 L (>89) mL/min POC Glucose (68-110) mg/dl Random Glucose 75 (74-106) mg/dL Calcium 8.2 L (8.5-10.1) mg/dL Total Bilirubin 0.2 (0.2-1.0) mg/dL AST 22 (15-37) U/L ALT 27 (12-78) U/L Alkaline Phosphatase 58 (45-117) U/L Total Protein 6.4 (6.4-8.2) g/dL Albumin 3.4 (3.4-5.0) g/dL Urine Color Straw (Yellw/Straw) Urine Clarity Clear (Clear) Urine pH 7.0 (5.0-8.5) Ur Specific Qulin 1.008 (1.002-1.035) Urine Protein 100 H (Neg-Trace) mg/dL Urine Glucose (UA) 50 (Negative) mg/dL Urine Ketones Negative (Negative) mg/dL Urine Occult Blood Moderate H (Negative) Urine Nitrate Negative (Negative) Urine Bilirubin Negative (Negative) Urine Urobilinogen Less than 2 (Less than 2) mg/dL Ur Leukocyte Esterase Negative (Negative) Urine RBC 3 (0-3) /hpf Urine WBC 1 (0-5) /hpf Micro UA Comment Culture not ind Urine Culture Comments Culture not ind 06/05/18 06/05/18 06/05/18 Range/Units 14:36 14:42 14:48 WBC (4.0-11.0) th/mm3 RBC (4.50-5.90) mil/mm3 Hgb (13.0-17.0) gm/dL Hct (39.0-51.0) % MCV (80.0-100.0) fL MCH (27.0-34.0) pg MCHC (32.0-36.0) % RDW (11.6-17.2) % Plt Count (150-450) th/mm3 MPV (7.0-11.0) fL Neut % (Auto) (16.0-70.0) % Lymph % (Auto) (9.0-44.0) % Power % (Auto) (0.0-8.0) % Eos % (Auto) (0.0-4.0) % Baso % (Auto) (0.0-2.0) % Neut # (Auto) (1.8-7.7) th/mm3 Lymph # (Auto) (1.0-4.8) th/mm3 Power # (Auto) (0.0-0.9) th/mm3 Eos # (Auto) (0.0-0.4) th/mm3 Baso # (Auto) (0.0-0.2) th/mm3 WBC Differential Differential Comment Sodium (136-145) meq/L Potassium (3.5-5.1) meq/L Chloride (98-107) meq/L Carbon Dioxide (21.0-32.0) meq/L Anion Gap (5-15) meq/L BUN (7-18) mg/dL Creatinine (0.60-1.30) mg/dL Estimated GFR (>89) mL/min POC Glucose 42 L* 47 L* 52 L (68-110) mg/dl Random Glucose (74-106) mg/dL Calcium (8.5-10.1) mg/dL Total Bilirubin (0.2-1.0) mg/dL AST (15-37) U/L ALT (12-78) U/L Alkaline Phosphatase (45-117) U/L Total Protein (6.4-8.2) g/dL Albumin (3.4-5.0) g/dL Urine Color (Yellw/Straw) Urine Clarity (Clear) Urine pH (5.0-8.5) Ur Specific Qulin (1.002-1.035) Urine Protein (Neg-Trace) mg/dL Urine Glucose (UA) (Negative) mg/dL Urine Ketones (Negative) mg/dL Urine Occult Blood (Negative) Urine Nitrate (Negative) Urine Bilirubin (Negative) Urine Urobilinogen (Less than 2) mg/dL Ur Leukocyte Esterase (Negative) Urine RBC (0-3) /hpf Urine WBC (0-5) /hpf Micro UA Comment Urine Culture Comments 06/05/18 06/05/18 Range/Units 15:18 17:43 WBC (4.0-11.0) th/mm3 RBC (4.50-5.90) mil/mm3 Hgb (13.0-17.0) gm/dL Hct (39.0-51.0) % MCV (80.0-100.0) fL MCH (27.0-34.0) pg MCHC (32.0-36.0) % RDW (11.6-17.2) % Plt Count (150-450) th/mm3 MPV (7.0-11.0) fL Neut % (Auto) (16.0-70.0) % Lymph % (Auto) (9.0-44.0) % Power % (Auto) (0.0-8.0) % Eos % (Auto) (0.0-4.0) % Baso % (Auto) (0.0-2.0) % Neut # (Auto) (1.8-7.7) th/mm3 Lymph # (Auto) (1.0-4.8) th/mm3 Power # (Auto) (0.0-0.9) th/mm3 Eos # (Auto) (0.0-0.4) th/mm3 Baso # (Auto) (0.0-0.2) th/mm3 WBC Differential Differential Comment Sodium (136-145) meq/L Potassium (3.5-5.1) meq/L Chloride (98-107) meq/L Carbon Dioxide (21.0-32.0) meq/L Anion Gap (5-15) meq/L BUN (7-18) mg/dL Creatinine (0.60-1.30) mg/dL Estimated GFR (>89) mL/min POC Glucose 115 H 97 (68-110) mg/dl Random Glucose (74-106) mg/dL Calcium (8.5-10.1) mg/dL Total Bilirubin (0.2-1.0) mg/dL AST (15-37) U/L ALT (12-78) U/L Alkaline Phosphatase (45-117) U/L Total Protein (6.4-8.2) g/dL Albumin (3.4-5.0) g/dL Urine Color (Yellw/Straw) Urine Clarity (Clear) Urine pH (5.0-8.5) Ur Specific Qulin (1.002-1.035) Urine Protein (Neg-Trace) mg/dL Urine Glucose (UA) (Negative) mg/dL Urine Ketones (Negative) mg/dL Urine Occult Blood (Negative) Urine Nitrate (Negative) Urine Bilirubin (Negative) Urine Urobilinogen (Less than 2) mg/dL Ur Leukocyte Esterase (Negative) Urine RBC (0-3) /hpf Urine WBC (0-5) /hpf Micro UA Comment Urine Culture Comments Discharge Plan Discharge Disposition Patient Disposition: 30 Still Patient Discharge Condition Condition: Good Discharge Order Discharge Orders: Discharge Order (Routine); Ordered 06/05/18 Ordered By: Patrick El Discharge Details Anticipated Discharge Date: 06/05/18 Discharge Comment: DC AFTER HD IS COMPLETE Diagnosis: Hyperkalemia, Restless leg syndrome, End-stage renal disease on hemodialysis, Hypertension Physicians Team ED Provider: Ed Courtney Primary Care Provider: Matthias Thomas Attending Provider: Patrick El Discharge Interventions Interventions: ED Discharge Assessment Last Done: 06/05/18 14:23 Vital Signs Last Done: 06/05/18 12:50 Status ED Status: Left Department Discharge Information Discharge Date/Time: 06/05/18 14:23
[2018-06-05 12:08] LABS: Alanine Aminotransferase 27 U/L (12-78); Albumin 3.4 g/dL (3.4-5.0); Alkaline Phosphatase 58 U/L (45-117); Anion Gap 10 meq/L (5-15); Aspartate Aminotransferase 22 U/L (15-37); Blood Urea Nitrogen 66 mg/dL (7-18); Calcium 8.2 mg/dL (8.5-10.1); Carbon Dioxide 19.5 meq/L (21.0-32.0); Chloride 110 meq/L (98-107); Glomerular Filtration Rate 7 mL/min (>89); Glucose,Random 75 mg/dL (74-106); Potassium 6.6 meq/L (3.5-5.1); Sodium 139 meq/L (136-145); Total Protein 6.4 g/dL (6.4-8.2)
[2018-06-05] MEDS ORDERED: Sod Chloride 0.9% Inj 1,000 ML IV.CONT PRN (12:23)
[2018-06-05] MEDS ORDERED: Epoetin Alfa Inj 4,000 UNIT/ML Vial IV.PUSH PRN (12:23)
[2018-06-05] MEDS ORDERED: Heparin 10,000 UNITS/10 ML Vial (for IV use) OTHER PRN (12:23)
[2018-06-05] MEDS ORDERED: Gelatin 12 MM/7 MM Topical Foam TOPICAL PRN (12:23)
[2018-06-05] MEDS ORDERED: Acetaminophen 325 MG Tablet PO PRN ×2 (12:23→12:57)
[2018-06-05] MEDS ORDERED: Sod Chloride 0.9% Inj 1,000 ML OTHER PRN ×2 (12:23)
[2018-06-05] MEDS ORDERED: Albumin Human 25% Inj 100 ML IV.SIG PRN (12:23)
[2018-06-05] MEDS ORDERED: Calcium Chloride Inj 1 GM in Dextrose 5% in Water Inj 100 ML IV.SIG ONE ×2 (12:28)
[2018-06-05] MEDS ORDERED: Temazepam 15 MG Capsule PO PRN (12:57)
[2018-06-05] MEDS ORDERED: Bisacodyl 10 MG Supp RECTAL PRN (12:57)
--- NOTE | 2018-06-05 13:45 | ECG ---
Date Performed: 06/05/2018 Time Performed: 10:25:21 PTAGE: 53 years EKG: Sinus rhythm SEPTAL MYOCARDIAL INFARCTION ABNORMAL ECG Since the PREVIOUS TRACING , no significant change noted PREVIOUS TRACING DOCTOR: Robert Nagel Interpretating Date/Time 06/05/2018 13:43:50
[2018-06-05] MEDS ORDERED: Naloxone Inj 0.4 MG/ML Vial IV.PUSH PRN (14:04)
[2018-06-05] MEDS ORDERED: Morphine Inj 4 MG/ML Vial IV.PUSH PRN ×2 (14:04)
[2018-06-05] MEDS ORDERED: oxyCODONE/Acetaminophen 10/325 Tablet PO PRN (14:04)
--- NOTE | 2018-06-05 14:08 | P.CONNP ---
History of Present Illness Service: Nephrology Consult date: 06/05/18 Requesting Physician: Ed Courtney Reason for Consult: ESRD with hyperkalemia Primary Care Provider: Matthias Thomas MD Chief Complaint: Recheck blood work History of Present Illness: Patient is a 53-year-old white male with history of end-stage renal disease, hypertension, restless leg syndrome, noncompliance and missed his dialysis for the past 2 treatments and he was told by the dialysis facility that his potassium is above 7 he needs to go to the emergency recheck of the potassium showed a potassium level of 6.6, patient is admitted for hemodialysis. Review of Systems Constitutional: Reports lack of energy Eyes: Denies blind spots, Denies blurry vision, Denies bulging eyes, Denies change in vision, Denies double vision, Denies discharge, Denies dry eyes, Denies floaters, Denies irritation, Denies itchy eyes, Denies loss of vision, Denies pain, Denies requires corrective lenses, Denies sensitivity to light, Denies other Ears, Nose, Mouth, and Throat: Denies abnormal hearing, Denies bleeding gums, Denies bad breath, Denies change in voice, Denies dental pain, Denies difficulty swallowing, Denies dizziness, Denies dry mouth, Denies ear discharge , Denies ear pain, Denies facial pain, Denies headache(s), Denies hearing loss, Denies hoarseness, Denies lip swelling, Denies nosebleed, Denies mouth lesions, Denies mouth pain, Denies nasal congestion, Denies nasal discharge, Denies nasal obstruction, Denies nasal trauma, Denies neck lump, Denies neck pain, Denies nose pain, Denies pain with swallowing, Denies poor balance, Denies post nasal drip, Denies ringing in the ears, Denies sinus pain, Denies sinus pressure , Denies sore throat, Denies throat swelling, Denies tongue swelling, Denies other Cardiovascular: Denies chest pain, Denies chest pain at rest, Denies chest pain with activity, Denies excessive sweating, Denies fainting, Denies fast heart rate, Denies foot swelling, Denies generalized swelling, Denies irregular heart rhythm, Denies leg pain with activity, Denies leg sores, Denies leg swelling, Denies lightheadedness, Denies radiating jaw, neck or arm pain, Denies rapid, pounding, or irregular heartbeat, Denies shortness of breath, Denies shortness of breath with activity, Denies shortness of breath when lying down, Denies shortness of breath causing sudden awakening, Denies slow heart rate, Denies other Respiratory: Denies change in phlegm color, Denies chest congestion, Denies cough, Denies coughing up blood, Denies excessive phlegm production, Denies pain on inspiration, Denies pain with cough, Denies shortness of breath, Denies shortness of breath with activity, Denies snoring, Denies stridor, Denies wheezing, Denies other Skin/Breast: Denies acne, Denies bleeding lesions, Denies boil, Denies breast swelling, Denies breast skin changes, Denies breast pain, Denies breast lump, Denies change in breast shape, Denies change in hair, Denies change in skin color, Denies changing lesions, Denies dry skin, Denies excessive hair growth, Denies hair loss, Denies itching, Denies lesions, Denies nail changes, Denies new lesions, Denies nipple discharge, Denies non-healing lesions, Denies redness , Denies sensitivity to light, Denies rash, Denies skin pain, Denies skin ulcer , Denies sores, Denies stretch arroyo, Denies unusual bruising, Denies wounds, Denies yellowing of the skin, Denies other Neurologic: Reports headache(s), Reports restless legs Psychiatric: Reports abnormal sleep pattern Hematologic/Lymphatic: Reports easy bleeding PMFSH - History History Provided By: Patient - Medical History Medical History: Medical History (Last Updated 06/05/18 @ 14:05 by Matthias Thomas MD) AV fistula Dialysis patient Renal disease Renal failure Restless leg syndrome - Tobacco History Second Hand Smoke Exposure: Yes Tobacco Use In Past 30 Days: Yes Smoking Status: Current every day smoker Tobacco Type: Cigarettes - Alcohol History How Often Do You Have a Drink Containing Alcohol: Never - Substance Use History Substance History: Active Abuse - Substance Use Type Marijuana Status: Active Route Used: Inhalation Last Used: "often" - Travel History Recent Travel in the [facility] Within the Last 8 Weeks: No Recent Travel Out of the Country Within the Last 8 Weeks: No - Immunization History Tetanus Immunization: <5 Years Hx Influenza Vaccine This Season: No Medications and Allergies Active Medications: Active Medications Acetaminophen (Tylenol) 650 mg PO UNSCH PRN PRN Reason: SEE LABEL COMMENTS Acetaminophen (Tylenol) 650 mg PO Q4H PRN PRN Reason: Temp > 100.4 Al Hydroxide/Mg Hydroxide (Milk Of Magnesia Liq) 30 ml PO Q12H PRN PRN Reason: Mild Constipation Bisacodyl (Dulcolax Supp) 10 mg RECTAL DAILY PRN PRN Reason: SEVERE CONSITIPATION Clonidine HCl (Catapres) 0.1 mg PO UNSCH PRN PRN Reason: SEE LABEL COMMENTS Diphenhydramine HCl (Benadryl) 25 mg PO UNSCH PRN PRN Reason: SEE LABEL COMMENTS Epoetin Zack (Epogen Inj) 4,000 unit IV.PUSH UNSCH PRN PRN Reason: SEE LABEL COMMENTS Gelatin (Gelfoam 12 Mm/7 Mm Topical) 1 foam TOPICAL UNSCH PRN PRN Reason: help stop bleeding from site Heparin Sodium (Porcine) (Heparin Inj) 8,000 units OTHER WITH DIALYSIS PRN PRN Reason: for machine prime Heparin Sodium (Porcine) (Heparin Inj) 5,000 units SQ Q12H DANIELLE Albumin Human (Flexbumin 25% Inj) 100 mls @ 60 mls/hr IV.SIG WITH DIALYSIS PRN PRN Reason: hypotension / volume replace Sodium Chloride (Ns Inj) 1,000 mls @ 0 mls/hr OTHER .Q0M PRN PRN Reason: for prime and rinse back Sodium Chloride (Ns Inj) 1,000 mls @ 200 mls/hr OTHER .Q5H PRN PRN Reason: for dialyzer flush PRN Sodium Chloride (Ns Inj) 1,000 mls @ 0 mls/hr IV.CONT .Q0M PRN PRN Reason: hypotension / volume replace Lactulose (Lactulose Liq) 30 ml PO DAILY PRN PRN Reason: SEVERE CONSITIPATION Mannitol (Mannitol Inj) 12.5 gm IV.PUSH UNSCH PRN PRN Reason: hypotension / volume replace Nitroglycerin (Nitrostat Sl) 0.4 mg SL Q5M PRN PRN Reason: CHEST PAIN Ondansetron HCl (Zofran Inj) 4 mg IV.PUSH UNSCH PRN PRN Reason: WITH DIALYSIS Ondansetron HCl (Zofran Inj) 4 mg IV.PUSH Q6H PRN PRN Reason: NAUSEA OR VOMITING Senna/Docusate Sodium ([place]-Colace) 1 tab PO BID DANIELLE Sennosides (Senokot) 17.2 mg PO Q12H PRN PRN Reason: Moderate Constipation Sodium Chloride (Ns Flush) 2 ml IV.FLUSH PRN PRN PRN Reason: FLUSH AFTER USING IV ACCESS Sodium Chloride (Ns Flush) 5 ml IV.FLUSH UNSCH PRN PRN Reason: flush each lumen during HD Temazepam (Restoril) 15 mg PO HS PRN PRN Reason: INSOMNIA Allergies Allergy/AdvReac Type Severity Reaction Status Date / Time sulfamethoxazole Allergy Unknown Anaphylaxis Verified 06/05/18 12:49 trimethoprim Allergy Unknown Anaphylaxis Verified 06/05/18 12:49 Exam Vital signs: Vital Signs 06/05/18 10:08 06/05/18 10:26 06/05/18 11:16 Temperature 98.2 F Pulse Rate 71 70 Respiratory Rate 18 18 Blood Pressure 167/75 H 166/77 H Pulse Oximetry 98 97 99 06/05/18 12:50 Temperature Pulse Rate 69 Respiratory Rate 18 Blood Pressure 147/77 H Pulse Oximetry 97 Intake & Output 06/04/18 06/05/18 06/05/18 18:59 06:59 18:59 Weight 61.235 kg - Constitutional no acute distress - Routine HEENT Exam Head: Present: normocephalic Eye: Present: EOMI, PERRL - Routine Neck Exam Present: supple - Routine Respiratory Exam Present: decreased breath sounds (At bases) - Routine Cardiovascular Exam Present: RRR - Routine Abdominal Exam Present: soft, normoactive bowel sounds - Routine Extremities Exam Present: full ROM - Routine Neurological Exam Present: alert, oriented X3 Results - Lab Results 06/05/18 10:35 06/05/18 10:35 Most recent lab results Calcium 8.2 mg/dL (8.5-10.1) L 06/05/18 10:35 Assessment and Plan - Assessment (1) End-stage renal disease on hemodialysis Code(s): N18.6 - End stage renal disease; Z99.2 - Dependence on renal dialysis Status: Acute (2) Hyperkalemia Code(s): E87.5 - Hyperkalemia Status: Acute (3) Hypertension Code(s): I10 - Essential (primary) hypertension Status: Acute - Plan Patient needs to be dialyzed as he has hyperkalemia BUN and creatinine remains elevated, noncompliance of the patient was discussed he should continue to do outpatient treatment and told him not to miss his dialysis Orders given and this will bring down the potassium He can be discharged after his dialysis.
[2018-06-05] MEDS ORDERED: Heparin - SQ 10,000 UNITS/ML Vial SQ SCH (16:00)
--- NOTE | 2018-06-05 16:27 | P.HPIM ---
History of Present Illness Service: [facility] Primary Care Physician: Matthias Thomas MD Chief Complaint: Recheck blood work History of Present Illness: Patient was seen by me about 1:30 PM this note is dictated after that time Patient is a 53-year-old male with a history of end-stage renal disease and hypertension, as well as restless leg syndrome and complete malignant medical noncompliance. Patient has missed dialysis on multiple occasions at least 2 treatments if not more potassium per his dialysis center was noted to be above 7 was told to go to the emergency department for evaluation. When he was seen here his potassium was only noted to be 6.6 and therefore has been admitted for hemodialysis. Has history of a left AV fistula. Tobacco abuse. Medical noncompliance also smokes marijuana - Diagnosis (1) End-stage renal disease on hemodialysis (2) Hyperkalemia (3) Hypertension (4) Restless leg syndrome Review of Systems All other systems reviewed negative except as stated in HPI PMFSH - History History Provided By: Patient - Medical History Medical History: Medical History (Last Updated 06/05/18 @ 16:17 by Patrick El DO) AV fistula AV fistula Dialysis patient Hypertension Marijuana abuse Noncompliance Renal disease Renal failure Restless leg syndrome Tobacco abuse - Family History Family History: Family History (Last Updated 06/05/18 @ 16:18 by Patrick El DO) Other Hypertension - Tobacco History Second Hand Smoke Exposure: Yes Tobacco Use In Past 30 Days: Yes Smoking Status: Current every day smoker Tobacco Type: Cigarettes - Alcohol History How Often Do You Have a Drink Containing Alcohol: Never - Substance Use History Substance History: Active Abuse - Substance Use Type Marijuana Status: Active Route Used: Inhalation Last Used: "often" - Travel History Recent Travel in the [facility] Within the Last 8 Weeks: No Recent Travel Out of the Country Within the Last 8 Weeks: No - Immunization History Tetanus Immunization: <5 Years Hx Influenza Vaccine This Season: No Medications and Allergies Active Medications: Active Medications Acetaminophen (Tylenol) 650 mg PO UNSCH PRN PRN Reason: SEE LABEL COMMENTS Acetaminophen (Tylenol) 650 mg PO Q4H PRN PRN Reason: Temp > 100.4 Al Hydroxide/Mg Hydroxide (Milk Of Magnesia Liq) 30 ml PO Q12H PRN PRN Reason: Mild Constipation Bisacodyl (Dulcolax Supp) 10 mg RECTAL DAILY PRN PRN Reason: SEVERE CONSITIPATION Clonidine HCl (Catapres) 0.1 mg PO UNSCH PRN PRN Reason: SEE LABEL COMMENTS Diphenhydramine HCl (Benadryl) 25 mg PO UNSCH PRN PRN Reason: SEE LABEL COMMENTS Epoetin Zack (Epogen Inj) 4,000 unit IV.PUSH UNSCH PRN PRN Reason: SEE LABEL COMMENTS Gelatin (Gelfoam 12 Mm/7 Mm Topical) 1 foam TOPICAL UNSCH PRN PRN Reason: help stop bleeding from site Heparin Sodium (Porcine) (Heparin Inj) 8,000 units OTHER WITH DIALYSIS PRN PRN Reason: for machine prime Heparin Sodium (Porcine) (Heparin Inj) 5,000 units SQ Q12H DANIELLE Albumin Human (Flexbumin 25% Inj) 100 mls @ 60 mls/hr IV.SIG WITH DIALYSIS PRN PRN Reason: hypotension / volume replace Sodium Chloride (Ns Inj) 1,000 mls @ 0 mls/hr OTHER .Q0M PRN PRN Reason: for prime and rinse back Sodium Chloride (Ns Inj) 1,000 mls @ 200 mls/hr OTHER .Q5H PRN PRN Reason: for dialyzer flush PRN Sodium Chloride (Ns Inj) 1,000 mls @ 0 mls/hr IV.CONT .Q0M PRN PRN Reason: hypotension / volume replace Lactulose (Lactulose Liq) 30 ml PO DAILY PRN PRN Reason: SEVERE CONSITIPATION Mannitol (Mannitol Inj) 12.5 gm IV.PUSH UNSCH PRN PRN Reason: hypotension / volume replace Morphine Sulfate (Morphine Inj) 4 mg IV.PUSH Q3H PRN PRN Reason: PAIN 6-10;IF UNABLE TO TAKE PO Morphine Sulfate (Morphine Inj) 2 mg IV.PUSH Q3H PRN PRN Reason: PAIN 3-5; IF UABLE TO TAKE PO Naloxone HCl (Narcan Inj) 0.4 mg IV.PUSH UNSCH PRN PRN Reason: SEE LABEL COMMENTS Nitroglycerin (Nitrostat Sl) 0.4 mg SL Q5M PRN PRN Reason: CHEST PAIN Ondansetron HCl (Zofran Inj) 4 mg IV.PUSH UNSCH PRN PRN Reason: WITH DIALYSIS Ondansetron HCl (Zofran Inj) 4 mg IV.PUSH Q6H PRN PRN Reason: NAUSEA OR VOMITING Oxycodone/Acetaminophen (Percocet 10/325 Mg) 1 tab PO Q6H PRN PRN Reason: PAIN SCALE 6 TO 10 Oxycodone/Acetaminophen (Percocet 5/325 Mg) 1 tab PO Q6H PRN PRN Reason: PAIN SCALE 3 TO 5 Senna/Docusate Sodium ([place]-Colace) 1 tab PO BID DANIELLE Sennosides (Senokot) 17.2 mg PO Q12H PRN PRN Reason: Moderate Constipation Sodium Chloride (Ns Flush) 2 ml IV.FLUSH PRN PRN PRN Reason: FLUSH AFTER USING IV ACCESS Sodium Chloride (Ns Flush) 5 ml IV.FLUSH UNSCH PRN PRN Reason: flush each lumen during HD Temazepam (Restoril) 15 mg PO HS PRN PRN Reason: INSOMNIA Allergies Allergy/AdvReac Type Severity Reaction Status Date / Time sulfamethoxazole Allergy Unknown Anaphylaxis Verified 06/05/18 12:49 trimethoprim Allergy Unknown Anaphylaxis Verified 06/05/18 12:49 Home Medications Medication Instructions Recorded Confirmed Type calcium acetate 06/05/18 06/05/18 History lidocaine-prilocaine 06/05/18 06/05/18 History pregabalin [Lyrica] 06/05/18 06/05/18 History ropinirole 06/05/18 06/05/18 History trazodone 06/05/18 06/05/18 History Exam Vital signs: Vital Signs 06/05/18 10:08 06/05/18 10:26 06/05/18 11:16 Temperature 98.2 F Pulse Rate 71 70 Respiratory Rate 18 18 Blood Pressure 167/75 H 166/77 H Pulse Oximetry 98 97 99 06/05/18 12:50 Temperature Pulse Rate 69 Respiratory Rate 18 Blood Pressure 147/77 H Pulse Oximetry 97 Intake & Output 06/04/18 06/05/18 06/05/18 18:59 06:59 18:59 Weight 61.235 kg Narrative: GENERAL: Awake alert and oriented 3 talkative and cooperative very thin cachectic appearing male SKIN: Warm and dry. HEAD: Atraumatic. Normocephalic. EYES: Pupils equal and round. No scleral icterus. No injection or drainage. ENT: No nasal bleeding or discharge. Mucous membranes pink and moist. NECK: Trachea midline. No JVD. CARDIOVASCULAR: Regular rate and rhythm. S1-S2 no S3 or S4 RESPIRATORY: No accessory muscle use. Clear to auscultation. Breath sounds equal bilaterally. GASTROINTESTINAL: Abdomen soft, non-tender, nondistended. Hepatic and splenic margins not palpable. MUSCULOSKELETAL: Extremities without clubbing, cyanosis, or edema. No obvious deformities. Left upper extremity with good thrill and bruit NEUROLOGICAL: Awake and alert. No obvious cranial nerve deficits. Motor grossly within normal limits. Five out of 5 muscle strength in the arms and legs. Normal speech. PSYCHIATRIC: INAppropriate mood and affect; insight and judgment ABnormal. Results - Labs CBC & Chem 7: 06/05/18 10:35 06/05/18 10:35 Labs: Short CBC 06/05/18 Range/Units 10:35 WBC 7.0 (4.0-11.0) th/mm3 Hgb 11.8 L (13.0-17.0) gm/dL Hct 34.6 L (39.0-51.0) % Plt Count 183 (150-450) th/mm3 BMP 06/05/18 10:35 Sodium 139 Potassium 6.6 H* Chloride 110 H Carbon Dioxide 19.5 L BUN 66 H Creatinine 7.82 H Calcium 8.2 L Liver Function 06/05/18 Range/Units 10:35 Total Bilirubin 0.2 (0.2-1.0) mg/dL AST 22 (15-37) U/L ALT 27 (12-78) U/L Alkaline Phosphatase 58 (45-117) U/L Albumin 3.4 (3.4-5.0) g/dL Urine 06/05/18 Range/Units 10:35 Urine Color Straw (Yellw/Straw) Urine Clarity Clear (Clear) Urine pH 7.0 (5.0-8.5) Ur Specific [place] 1.008 (1.002-1.035) Urine Protein 100 H (Neg-Trace) mg/dL Urine Glucose (UA) 50 (Negative) mg/dL Caprini VTE Risk Assessment Caprini VTE Risk Assessment: No/Low Risk (score <= 1) Caprini Risk Assessment Model: Point Value = 1 Point Value = 2 Point Value = 3 Point Value = 5 Age 41-60 Minor surgery BMI > 25 kg/m2 Swollen legs Varicose veins or History of unexplained or recurrent spontaneous Oral contraceptives or hormone replacement Sepsis (< 1 month) Serious lung disease, including pneumonia (< 1 month) Abnormal pulmonary function Acute myocardial infarction Congestive heart failure (< 1 month) History of inflammatory bowel disease Medical patient at bed rest Age 61-74 Arthroscopic surgery Major open surgery (> 45 min) Laparoscopic surgery (> 45 min) Malignancy Confined to bed (> 72 hours) Immobilizing plaster cast Central venous access Age >= 75 History of VTE Family history of VTE Factor V Leiden Prothrombin [id number] Lupus anticoagulant Anticardiolipin antibodies Elevated serum homocysteine Heparin-induced thrombocytopenia Other congenital or acquired thrombophilia Stroke (< 1 month) Elective arthroplasty Hip, pelvis, or leg fracture Acute spinal cord injury (< 1 month) Prophylaxis Regimen: Total Risk Factor Score Risk Level Prophylaxis Regimen 0-1 Low Early ambulation 2 Moderate Order ONE of the following: *Sequential Compression Device (SCD) *Heparin 5000 units SQ BID 3-4 Higher Order ONE of the following medications: *Heparin 5000 units SQ TID *Enoxaparin/Lovenox 40 mg SQ daily (WT < 150 kg, CrCl > 30 mL/min) *Enoxaparin/Lovenox 30 mg SQ daily (WT < 150 kg, CrCl > 10-29 mL/min) *Enoxaparin/Lovenox 30 mg SQ BID (WT < 150 kg, CrCl > 30 mL/min) AND/OR *Sequential Compression Device (SCD) 5 or more Highest Order ONE of the following medications: *Heparin 5000 units SQ TID (Preferred with Epidurals) *Enoxaparin/Lovenox 40 mg SQ daily (WT < 150 kg, CrCl > 30 mL/min) *Enoxaparin/Lovenox 30 mg SQ daily (WT < 150 kg, CrCl > 10-29 mL/min) *Enoxaparin/Lovenox 30 mg SQ BID (WT < 150 kg, CrCl > 30 mL/min) AND *Sequential Compression Device (SCD) Assessment and Plan - Assessment (1) End-stage renal disease on hemodialysis Code(s): N18.6 - End stage renal disease; Z99.2 - Dependence on renal dialysis Status: Chronic (2) Hyperkalemia Code(s): E87.5 - Hyperkalemia Status: Acute (3) Hypertension Code(s): I10 - Essential (primary) hypertension Status: Chronic (4) Restless leg syndrome Code(s): G25.81 - Restless legs syndrome Status: Acute - Plan End-stage renal disease on hemodialysis with malignant medical noncompliance -Patient is scheduled to undergo hemodialysis can be discharged after hemodialysis Hyperkalemia will undergo hemodialysis today -Can be discharged after hemodialysis Hypertension appears to be malignantly noncompliant does not appear to even know what meds he takes Restless leg syndrome chronic Code Status: FULL CODE Discussed Condition With: RN AND PT Discharge Planning: DC AFTER HD RESUME HD SCHEDULED Saturday AND SATURDAY
--- NOTE | 2018-06-05 16:37 | P.DS ---
Date of admission: 06/05/18 13:05 Primary care physician: Matthias Thomas MD Attending physician on discharge: Patrick El Anticipated date of discharge: 06/05/18 (AFTER HD IS COMPLETE) Brief History from admission: Patient was seen by me about 1:30 PM this note is dictated after that time Patient is a 53-year-old male with a history of end-stage renal disease and hypertension, as well as restless leg syndrome and complete malignant medical noncompliance. Patient has missed dialysis on multiple occasions at least 2 treatments if not more potassium per his dialysis center was noted to be above 7 was told to go to the emergency department for evaluation. When he was seen here his potassium was only noted to be 6.6 and therefore has been admitted for hemodialysis. Has history of a left AV fistula. Tobacco abuse. Medical noncompliance also smokes marijuana DS: Diagnosis - Discharge Diagnosis (1) End-stage renal disease on hemodialysis Status: Chronic (2) Hyperkalemia Status: Acute (3) Hypertension Status: Chronic (4) Restless leg syndrome Status: Chronic DS: Medications - Discharge Medications Prescriptions: calcium acetate 2 cap PO QID #240 cap clonidine HCl [Catapres] 0.1 mg PO BID #60 tab pregabalin [Lyrica] 1 cap PO BID #60 cap ropinirole 1 tab PO TID #90 tab trazodone 1 tab PO HS #30 tab DS: Summary Hospital Course: Patient is a 53-year-old male with a history of end-stage renal disease and hypertension, as well as restless leg syndrome and complete malignant medical noncompliance. Patient has missed dialysis on multiple occasions at least 2 treatments if not more potassium per his dialysis center was noted to be above 7 was told to go to the emergency department for evaluation. When he was seen here his potassium was only noted to be 6.6 and therefore has been admitted for hemodialysis. Has history of a left AV fistula. Tobacco abuse. Medical noncompliance also smokes marijuana DC AFTER HD - Time Spent with Patient Total time spent providing and/or coordinating discharge services: Greater than 30 minutes Exam Vital signs: Vital Signs 06/05/18 10:08 06/05/18 10:26 06/05/18 11:16 Temperature 98.2 F Pulse Rate 71 70 Respiratory Rate 18 18 Blood Pressure 167/75 H 166/77 H Pulse Oximetry 98 97 99 06/05/18 12:50 Temperature Pulse Rate 69 Respiratory Rate 18 Blood Pressure 147/77 H Pulse Oximetry 97 Intake & Output 06/04/18 06/05/18 06/05/18 18:59 06:59 18:59 Weight 61.235 kg Narrative: GENERAL: Awake alert and oriented 3 talkative and cooperative very thin cachectic appearing male SKIN: Warm and dry. HEAD: Atraumatic. Normocephalic. EYES: Pupils equal and round. No scleral icterus. No injection or drainage. ENT: No nasal bleeding or discharge. Mucous membranes pink and moist. NECK: Trachea midline. No JVD. CARDIOVASCULAR: Regular rate and rhythm. S1-S2 no S3 or S4 RESPIRATORY: No accessory muscle use. Clear to auscultation. Breath sounds equal bilaterally. GASTROINTESTINAL: Abdomen soft, non-tender, nondistended. Hepatic and splenic margins not palpable. MUSCULOSKELETAL: Extremities without clubbing, cyanosis, or edema. No obvious deformities. Left upper extremity with good thrill and bruit NEUROLOGICAL: Awake and alert. No obvious cranial nerve deficits. Motor grossly within normal limits. Five out of 5 muscle strength in the arms and legs. Normal speech. PSYCHIATRIC: INAppropriate mood and affect; insight and judgment ABnormal. Results Procedures completed during hospitalization: HD Completed studies during hospitalization: Laboratory Results WBC 7.0 th/mm3 (4.0-11.0) 06/05/18 10:35 RBC 3.73 mil/mm3 (4.50-5.90) L 06/05/18 10:35 Hgb 11.8 gm/dL (13.0-17.0) L 06/05/18 10:35 Hct 34.6 % (39.0-51.0) L 06/05/18 10:35 MCV 92.8 fL (80.0-100.0) 06/05/18 10:35 MCH 31.7 pg (27.0-34.0) 06/05/18 10:35 MCHC 34.1 % (32.0-36.0) 06/05/18 10:35 RDW 15.0 % (11.6-17.2) 06/05/18 10:35 Plt Count 183 th/mm3 (150-450) 06/05/18 10:35 MPV 8.3 fL (7.0-11.0) 06/05/18 10:35 Neut % (Auto) 66.5 % (16.0-70.0) 06/05/18 10:35 Lymph % (Auto) 21.4 % (9.0-44.0) 06/05/18 10:35 Kendall % (Auto) 7.2 % (0.0-8.0) 06/05/18 10:35 Eos % (Auto) 4.3 % (0.0-4.0) H 06/05/18 10:35 Baso % (Auto) 0.6 % (0.0-2.0) 06/05/18 10:35 Neut # (Auto) 4.6 th/mm3 (1.8-7.7) 06/05/18 10:35 Lymph # (Auto) 1.5 th/mm3 (1.0-4.8) 06/05/18 10:35 Kendall # (Auto) 0.5 th/mm3 (0.0-0.9) 06/05/18 10:35 Eos # (Auto) 0.3 th/mm3 (0.0-0.4) 06/05/18 10:35 Baso # (Auto) 0.0 th/mm3 (0.0-0.2) 06/05/18 10:35 WBC Differential . 06/05/18 10:35 Differential Comment Auto diff final 06/05/18 10:35 Sodium 139 meq/L (136-145) 06/05/18 10:35 Potassium 6.6 meq/L (3.5-5.1) H* 06/05/18 10:35 Chloride 110 meq/L (98-107) H 06/05/18 10:35 Carbon Dioxide 19.5 meq/L (21.0-32.0) L 06/05/18 10:35 Anion Gap 10 meq/L (5-15) 06/05/18 10:35 BUN 66 mg/dL (7-18) H 06/05/18 10:35 Creatinine 7.82 mg/dL (0.60-1.30) H 06/05/18 10:35 Estimated GFR 7 mL/min (>89) L 06/05/18 10:35 POC Glucose 115 mg/dl (68-110) H 06/05/18 15:18 Random Glucose 75 mg/dL (74-106) 06/05/18 10:35 Calcium 8.2 mg/dL (8.5-10.1) L 06/05/18 10:35 Total Bilirubin 0.2 mg/dL (0.2-1.0) 06/05/18 10:35 AST 22 U/L (15-37) 06/05/18 10:35 ALT 27 U/L (12-78) 06/05/18 10:35 Alkaline Phosphatase 58 U/L (45-117) 06/05/18 10:35 Total Protein 6.4 g/dL (6.4-8.2) 06/05/18 10:35 Albumin 3.4 g/dL (3.4-5.0) 06/05/18 10:35 Urine Color Straw (Yellw/Straw) 06/05/18 10:35 Urine Clarity Clear (Clear) 06/05/18 10:35 Urine pH 7.0 (5.0-8.5) 06/05/18 10:35 Ur Specific [place] 1.008 (1.002-1.035) 06/05/18 10:35 Urine Protein 100 mg/dL (Neg-Trace) H 06/05/18 10:35 Urine Glucose (UA) 50 mg/dL (Negative) 06/05/18 10:35 Urine Ketones Negative mg/dL (Negative) 06/05/18 10:35 Urine Occult Blood Moderate (Negative) H 06/05/18 10:35 Urine Nitrate Negative (Negative) 06/05/18 10:35 Urine Bilirubin Negative (Negative) 06/05/18 10:35 Urine Urobilinogen Less than 2 mg/dL (Less than 2) 06/05/18 10:35 Ur Leukocyte Esterase Negative (Negative) 06/05/18 10:35 Urine RBC 3 /hpf (0-3) 06/05/18 10:35 Urine WBC 1 /hpf (0-5) 06/05/18 10:35 Micro UA Comment Culture not ind 06/05/18 10:35 Urine Culture Comments Culture not ind 06/05/18 10:35 Labs on day of discharge: Labs from last 24 hours 06/05/18 06/05/18 06/05/18 15:18 14:48 14:42 WBC RBC Hgb Hct MCV MCH MCHC RDW Plt Count MPV Neut % (Auto) Lymph % (Auto) Kendall % (Auto) Eos % (Auto) Baso % (Auto) Neut # (Auto) Lymph # (Auto) Kendall # (Auto) Eos # (Auto) Baso # (Auto) WBC Differential Differential Comment Sodium Potassium Chloride Carbon Dioxide Anion Gap BUN Creatinine Estimated GFR POC Glucose 115 H 52 L 47 L* Random Glucose Calcium Total Bilirubin AST ALT Alkaline Phosphatase Total Protein Albumin Urine Color Urine Clarity Urine pH Ur Specific [place] Urine Protein Urine Glucose (UA) Urine Ketones Urine Occult Blood Urine Nitrate Urine Bilirubin Urine Urobilinogen Ur Leukocyte Esterase Urine RBC Urine WBC Micro UA Comment Urine Culture Comments 06/05/18 06/05/18 06/05/18 14:36 10:35 10:35 WBC RBC Hgb Hct MCV MCH MCHC RDW Plt Count MPV Neut % (Auto) Lymph % (Auto) Kendall % (Auto) Eos % (Auto) Baso % (Auto) Neut # (Auto) Lymph # (Auto) Kendall # (Auto) Eos # (Auto) Baso # (Auto) WBC Differential Differential Comment Sodium 139 Potassium 6.6 H* Chloride 110 H Carbon Dioxide 19.5 L Anion Gap 10 BUN 66 H Creatinine 7.82 H Estimated GFR 7 L POC Glucose 42 L* Random Glucose 75 Calcium 8.2 L Total Bilirubin 0.2 AST 22 ALT 27 Alkaline Phosphatase 58 Total Protein 6.4 Albumin 3.4 Urine Color Straw Urine Clarity Clear Urine pH 7.0 Ur Specific [place] 1.008 Urine Protein 100 H Urine Glucose (UA) 50 Urine Ketones Negative Urine Occult Blood Moderate H Urine Nitrate Negative Urine Bilirubin Negative Urine Urobilinogen Less than 2 Ur Leukocyte Esterase Negative Urine RBC 3 Urine WBC 1 Micro UA Comment Culture not ind Urine Culture Comments Culture not ind 06/05/18 10:35 WBC 7.0 RBC 3.73 L Hgb 11.8 L Hct 34.6 L MCV 92.8 MCH 31.7 MCHC 34.1 RDW 15.0 Plt Count 183 MPV 8.3 Neut % (Auto) 66.5 Lymph % (Auto) 21.4 Kendall % (Auto) 7.2 Eos % (Auto) 4.3 H Baso % (Auto) 0.6 Neut # (Auto) 4.6 Lymph # (Auto) 1.5 Kendall # (Auto) 0.5 Eos # (Auto) 0.3 Baso # (Auto) 0.0 WBC Differential . Differential Comment Auto diff final Sodium Potassium Chloride Carbon Dioxide Anion Gap BUN Creatinine Estimated GFR POC Glucose Random Glucose Calcium Total Bilirubin AST ALT Alkaline Phosphatase Total Protein Albumin Urine Color Urine Clarity Urine pH Ur Specific [place] Urine Protein Urine Glucose (UA) Urine Ketones Urine Occult Blood Urine Nitrate Urine Bilirubin Urine Urobilinogen Ur Leukocyte Esterase Urine RBC Urine WBC Micro UA Comment Urine Culture Comments Discharge Plan - Discharge Disposition Patient Disposition: 01 Discharge Home - Discharge Condition Condition: Good - Discharge Order Discharge Orders: Discharge Order (Routine); Ordered 06/05/18 Ordered By: Patrick El - Discharge Details Anticipated Discharge Date: 06/05/18 Discharge Comment: DC AFTER HD IS COMPLETE - Physicians Team Primary Care Provider: Matthias Thomas Attending Provider: Patrick El
[2018-06-05 19:28] VITALS: PULSE 71
[2018-06-05] MEDS ORDERED: Senna/Docusate Sodium 8.6/50 MG Tablet PO SCH (21:00)
[2018-06-05 21:38] VITALS: BP 136/77; TEMP 97.9; O2SAT 98
== END 2018-06-05 22:15 | disposition home or self-care (01) ==
LOC: NEDA 10:02 → NEPHCDU 10:02 → NEPC 10:02 → NEPHCDU 14:05
PROVIDERS: ADMIT Hospitalist; ATTEND Hospitalist
DX: F17.210 Nicotine dependence, cigarettes, uncomplicated; D63.1 Anemia in chronic kidney disease; G25.81 Restless legs syndrome; F12.90 Cannabis use, unspecified, uncomplicated; Z88.2 Allergy status to sulfonamides; Z99.2 Dependence on renal dialysis; Z91.19 Patient's noncompliance with other medical treatment and regimen; N18.6 End stage renal disease; I12.0 Hypertensive chronic kidney disease with stage 5 chronic kidney disease or end stage renal disease; E87.5 Hyperkalemia